=== PATIENT | male | born 1970 | race Caucasian/White ===

== ENCOUNTER 2018-09-30 09:56 | Inpatient (IN) | payer BC, OTHER ==
[~2018-09-30] VITALS: Ht 177.8 cm; Wt 117.9 kg
[2018-09-30] VITALS (12 sets, daily range): BP systolic 92–121; BP diastolic 61–90
[~2018-09-30 09:56] MED LIST: HYDR-707 PO; LORA-703 PO
[2018-09-30 10:21] LABS: BASOPHILS % (AUTO) 0 % (0-10); EOSINOPHILS # (AUTO) 0.1 10^3/uL (0.0-0.3); EOSINOPHILS % (AUTO) 1 % (0-10); HEMATOCRIT 48 % (40-54); HEMOGLOBIN 15.8 G/DL (13.3-17.7); LYMPHOCYTES # (AUTO) 1.5 X 10^3 (1.0-4.0); LYMPHOCYTES % (AUTO) 19 % (12-44); MEAN CORPUSCULAR HEMOGLOBIN 30 PG (25-34); MEAN CORPUSCULAR HGB CONC 33 G/DL (32-36); MEAN CORPUSCULAR VOLUME 91 FL (80-99); MEAN PLATELET VOLUME 11.6 FL (7.4-10.4); MONOCYTES # (AUTO) 0.6 X 10^3 (0.0-1.0); MONOCYTES % (AUTO) 8 % (0-12); NEUTROPHILS # (AUTO) 5.9 X 10^3 (1.8-7.8); NEUTROPHILS % (AUTO) 72 % (42-75); PLATELET COUNT 191 10^3/uL (130-400); RED BLOOD COUNT 5.23 10^6/uL (4.35-5.85); RED CELL DISTRIBUTION WIDTH 14.4 % (10.0-14.5); WHITE BLOOD COUNT 8.2 10^3/uL (4.3-11.0)
[2018-09-30] MEDS ORDERED: TPR25T PO (10:22)
[2018-09-30] MEDS ORDERED: PHEN-483 PO (10:22)
[2018-09-30] MEDS: DILTIAZEM INJECTION 125 MG in NS (IVPB) 100 ML IV SCH ×2 (10:30→22:45)
[2018-09-30 10:34] LABS: ALANINE AMINOTRANSFERASE 29 U/L (0-55); ALBUMIN 4.2 GM/DL (3.2-4.5); ALKALINE PHOSPHATASE 71 U/L (40-136); BILIRUBIN,TOTAL 0.6 MG/DL (0.1-1.0); BUN/CREATININE RATIO 11; CALCIUM 8.9 MG/DL (8.5-10.1); CARBON DIOXIDE 19 MMOL/L (21-32); CHLORIDE 113 MMOL/L (98-107); CREATININE SERUM 0.93 MG/DL (0.60-1.30); GFR ESTIMATED > 60; GLUCOSE 99 MG/DL (70-105); MAGNESIUM 2.5 MG/DL (1.8-2.4); POTASSIUM 4.6 MMOL/L (3.6-5.0); SODIUM 139 MMOL/L (135-145); TOTAL PROTEIN 6.8 GM/DL (6.4-8.2)
--- NOTE | 2018-09-30 10:48 | Diagnostic Imaging Report ---
INDICATION: Irregular heart beat COMPARISON: None FINDINGS: Single view of the chest demonstrates mild cardiac enlargement. The lungs are clear. There is no pneumothorax. The osseous structures normal. IMPRESSION: Mild cardiac enlargement without pulmonary edema or infiltrate. Dictated by: Dictated on workstation # [id number]
[2018-09-30 10:53] LABS: TSH (THYROID ANALYZER) 1.29 UIU/ML (0.35-4.94)
--- NOTE | 2018-09-30 11:51 | ED Cardiac General ---
History of Present Illness General Chief Complaint: Chest Pain Stated Complaint: IRR HEART RATE Nursing Triage Note: PT AMBULATED TO TRIAGE CO OF ATRIAL FIB, PT WAS SENT FROM [facility] THIS AM. PT DENIES C/P STATES HAS BEEN IN A-FIB FOR ABOUT 1 WEEK. PT STATES HAS HX OF A-FIB 2 YEARS AGO AND WAS SHOCKED BACK INTO [facility] NO PROB SINCE Source: patient, old records Exam Limitations: no limitations History of Present Illness Date Seen by Provider: Sep 30, 2018 Time Seen by Provider: 09:59 Initial Comments This 48-year-old gentleman presents to the emergency room with complaints of atrial fibrillation. He noted irregular rhythm and lightheadedness about one week ago. He had one remote episode of A. fib requiring cardioversion. He is no longer anticoagulated and is not on any medications to control rhythm. His primary care provider is the [place] in [place]. He has not seen any other local providers within the past 2 years. 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 He denies any medications other than phentermine and Topamax which he takes for treatment of obesity. He denies any chest pain or shortness of breath. Allergies and Home Medications Allergies Coded Allergies: No Known Drug Allergies (Unverified , 07/05/12) Home Medications Phentermine HCl 37.5 Mg Capsule, 37.5 MG PO DAILY, (Reported) Patient Home Medication List Home Medication List Reviewed: Yes Review of Systems Review of Systems Constitutional: no symptoms reported EENTM: No Symptoms Reported Respiratory: No Symptoms Reported Cardiovascular: See HPI Gastrointestinal: No Symptoms Reported Genitourinary: No Symptoms Reported Musculoskeletal: no symptoms reported Skin: no symptoms reported Psychiatric/Neurological: No Symptoms Reported Endocrine: No Symptoms Reported Hematologic/Lymphatic: No Symptoms Reported Past Bitsggq-Dnclvj-Myhvkg Hx Patient Social History Recent Foreign Travel: No Contact w/Someone Who Travel: No Recent Infectious Disease Expo: No Past Medical History Surgeries: Yes Orthopedic (Right arm) Respiratory: No Cardiac: Yes Atrial Fibrillation Neurological: No Reproductive Disorders: No Genitourinary: Yes Kidney Stones Gastrointestinal: No Musculoskeletal: No Endocrine: Yes (Obesity) HEENT: No Cancer: No Psychosocial: No Integumentary: No Physical Exam Vital Signs Vital Signs - First Documented 09/30/18 10:00 Temp 98.1 Pulse 128 Resp 18 B/P (MAP) 126/80 (95) Pulse Ox 99 O2 Delivery Room Air Capillary Refill : Less Than 3 Seconds Height, Weight, BMI Height: 5'10.00" Weight: 265lbs. oz. 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 Norm as Tested Skin: Normal Color, Warm/Dry Progress/Results/Core Measures Results/Orders Lab Results Laboratory Tests Test 09/30/18 10:05 Range/Units White Blood Count 8.2 4.3-11.0 10^3/uL Red Blood Count 5.23 4.35-5.85 10^6/uL Hemoglobin 15.8 13.3-17.7 G/DL Hematocrit 48 40-54 % Mean Corpuscular Volume 91 80-99 FL Mean Corpuscular Hemoglobin 30 25-34 PG Mean Corpuscular Hemoglobin Concent 33 32-36 G/DL Red Cell Distribution Width 14.4 10.0-14.5 % Platelet Count 191 130-400 10^3/uL Mean Platelet Volume 11.6 H 7.4-10.4 FL Neutrophils (%) (Auto) 72 42-75 % Lymphocytes (%) (Auto) 19 12-44 % Monocytes (%) (Auto) 8 0-12 % Eosinophils (%) (Auto) 1 0-10 % Basophils (%) (Auto) 0 0-10 % Neutrophils # (Auto) 5.9 1.8-7.8 X 10^3 Lymphocytes # (Auto) 1.5 1.0-4.0 X 10^3 Monocytes # (Auto) 0.6 0.0-1.0 X 10^3 Eosinophils # (Auto) 0.1 0.0-0.3 10^3/uL Basophils # (Auto) 0.0 0.0-0.1 10^3/uL Sodium Level 139 135-145 MMOL/L Potassium Level 4.6 3.6-5.0 MMOL/L Chloride Level 113 H 98-107 MMOL/L Carbon Dioxide Level 19 L 21-32 MMOL/L Anion Gap 7 5-14 MMOL/L Blood Urea Nitrogen 10 7-18 MG/DL Creatinine 0.93 0.60-1.30 MG/DL Estimat Glomerular Filtration Rate > 60 BUN/Creatinine Ratio 11 Glucose Level 99 70-105 MG/DL Calcium Level 8.9 8.5-10.1 MG/DL Corrected Calcium 8.7 8.5-10.1 MG/DL Magnesium Level 2.5 H 1.8-2.4 MG/DL Total Bilirubin 0.6 0.1-1.0 MG/DL Aspartate Amino Transf (AST/SGOT) 22 5-34 U/L Alanine Aminotransferase (ALT/SGPT) 29 0-55 U/L Alkaline Phosphatase 71 40-136 U/L Troponin I < 0.30 <0.30 NG/ML Total Protein 6.8 6.4-8.2 GM/DL Albumin 4.2 3.2-4.5 GM/DL TSH [place] Testing 1.29 0.35-4.94 UIU/ML My Orders Orders - NICHO ESCOBAR MD Cbc With Automated Diff (09/30/18 10:07) Comprehensive Metabolic Panel (09/30/18 10:07) Magnesium (09/30/18 10:07) Thyroid Analyzer (09/30/18 10:07) Troponin I (09/30/18 10:07) Chest 1 View, Ap/Pa Only (09/30/18 10:07) Saline Lock/Iv-Start (09/30/18 10:07) Ns (Ivpb) (Sodium C... W/Diltiazem Injec (09/30/18 10:15) Apixaban Tablet (Eliquis Tablet) (09/30/18 13:45) Medications Given in ED Current Medications Medications Dose Ordered Sig/Abilio Route Start Time Stop Time Status Last Admin Dose Admin Apixaban 5 mg ONCE ONCE PO 09/30/18 13:45 09/30/18 13:46 DC 09/30/18 13:50 5 MG Vital Signs/I&O 09/30/18 09/30/18 10:00 10:00 Temp 98.1 Pulse 128 Resp 18 B/P (MAP) 126/80 (95) Pulse Ox 99 O2 Delivery Room Air Blood Pressure Mean: 95 Progress Progress Note : Progress Note Patient's heart rate started in the 120s and 130s. Cardizem drip was initiated and brought his heart rate down into the 60s and 70s. Workup was grossly unremarkable. Case was discussed with Dr. Earl who preferred that the patient be admitted and observed overnight. Cardizem drip was continued. Eliquis was given for stroke prophylaxis. Initial ECG Impression Date: Sep 30, 2018 Initial ECG Impression Time: 10:00 Initial ECG Rate: 130 Initial ECG Rhythm: A Fib/Flutter Initial ECG Impression: Atrial Fibrillation w/RVR Comment Atrial fibrillation with RVR with no overt ST elevation or depression. Diagnostic Imaging Diagonstic Imaging: Xray Plain Films/CT/US/NM/MRI: chest Comments NAME: REENA FORD [facility] REC#: [id number] PT STATUS: REG ER : 1970 PHYSICIAN: NICHO ESCOBAR MD ADMIT DATE: 09/30/18/ER Draft Date of Exam:09/30/18 CHEST 1 VIEW, AP/PA ONLY INDICATION: Irregular heart beat COMPARISON: None FINDINGS: Single view of the chest demonstrates mild cardiac enlargement. The lungs are clear. There is no pneumothorax. The osseous structures normal. IMPRESSION: Mild cardiac enlargement without pulmonary edema or infiltrate. Dictated on workstation # [id number] Dict: 09/30/18 1042 Trans: 09/30/18 1047 AUGUSTIN [id number] Interpreted by: LILIANA PAREDES Departure Communication (Admissions) Time/Spoke to Admitting Phy: 13:30 Dr. Laguna Time/Spoke to Consulting Phy: 13:10 Dr. Earl Impression Primary Impression: Atrial fibrillation with RVR Disposition: 09 ADMITTED INPATIENT Condition: Improved Admissions Decision to Admit Reason: Admit from ER (General) Decision to Admit/Date: Sep 30, 2018 Time/Decision to Admit Time: 13:10 NICHO ESCOBAR MD Sep 30, 2018 11:51
[2018-09-30] MEDS ORDERED: APIXABAN 5 MG (ELIQUIS) TABLET PO ONE (13:45)
--- OUTSIDE RECORDS SUMMARY | 2018-09-30 13:52 | XMS REPORT | Continuity of Care Document ---
Demographics Preferred Language Unknown Marital Status Unknown Mormon Affiliation Unknown Race Unknown Ethnic Group Unknown Author Author [facility] Address Unknown Phone Unavailable Allergies There is no data. Medications There is no data. Problems Date Dx Coded Attending Type Code Diagnosis Diagnosed By 09/02/2012 278.00 OBESITY 09/02/[address] Abdominal Liver Mass Lesion ___cm 09/02/2012 592.0 NEPHROLITHIASIS BILATERAL 09/02/2012 796.2 Blood Pressure Isolated Elevated Procedures Code [place] [address] ROUTINE VENIPUNCTURE 09/02/2012 74822 A1C (IN-HOUSE) 09/02/2012 50135 CBC 09/02/2012 29972 LIPID PANEL 09/02/2012 44357 CMP 09/02/2012 [id number] GFR CALC (RESULT ONLY) 09/02/2012 98324 HEPATITIS PROFILE 09/03/2012 22324 UA W/MICROSCOPY 09/03/2012 89033 ALPHA-FETOPROTEIN 09/03/2012 95351 US ABDOMEN, LIMITED 09/03/2012 Results There is no data. Encounters ACCT No. Visit Date/Time Discharge Status Pt. Type Provider Facility Loc./Unit Complaint [id number] 09/02/2012 08:52:00 09/02/2012 23:59:59 CLS Outpatient
--- OUTSIDE RECORDS SUMMARY | 2018-09-30 15:08 | XMS REPORT | Continuity of Care Document ---
Demographics Preferred Language Unknown Marital Status Unknown Quaker Affiliation Unknown Race Unknown Ethnic Group Unknown Author Author [facility] Address Unknown Phone Unavailable Allergies There is no data. Medications There is no data. Problems Date Dx Coded Attending Type Code Diagnosis Diagnosed By 09/02/2012 278.00 OBESITY 09/02/[address] Abdominal Liver Mass Lesion ___cm 09/02/2012 592.0 NEPHROLITHIASIS BILATERAL 09/02/2012 796.2 Blood Pressure Isolated Elevated Procedures Code Description [place] [address] ROUTINE VENIPUNCTURE 09/02/2012 63461 A1C (IN-HOUSE) 09/02/2012 47578 CBC 09/02/2012 43174 LIPID PANEL 09/02/2012 92511 CMP 09/02/2012 [id number] GFR CALC (RESULT ONLY) 09/02/2012 66617 HEPATITIS PROFILE 09/03/2012 71377 UA W/MICROSCOPY 09/03/2012 50893 ALPHA-FETOPROTEIN 09/03/2012 71854 US ABDOMEN, LIMITED 09/03/2012 Results There is no data. Encounters ACCT No. Visit Date/Time Discharge Status Pt. Type Provider Facility Loc./Unit Complaint [id number] 09/02/2012 08:52:00 09/02/2012 23:59:59 CLS Outpatient
[2018-09-30] MEDS ORDERED: NS IV 1000 ML 1,000 ML ONE (15:15)
--- NOTE | 2018-09-30 15:25 | Consultation-Cardiology ---
HPI-Cardiology Cardiology Consultation Date of Consultation 09/30/18 Date of Admission Time Seen by Provider: 15:21 Indication: atrial fibrillation HPI 48 years old gentleman with history of atrial fibrillation in the remote past. Was in his usual state of health, seen at the [facility] and reported that he was in atrial fibrillation. He was monitored and continued to be in atrial fibrillation for about a week and he was offered to be admitted to the [facility] or come to the emergency room in [place], he elected to come to our hospital. His been complaining of generalized fatigue, shortness of breath on exertion. Orthostatic dizziness. No chest pain. No syncope or near syncopal episodes. No palpitation. He was noted to be in atrial fibrillation with rapid ventricular response, started on Cardizem drip, heart rate is slightly better. Denied any previous cardiac history, has been taking phentermine for weight loss Home Medications & Allergies Allergies: Coded Allergies: No Known Drug Allergies (Unverified , 07/05/12) Home Medication List Reviewed: Yes OEC-Frkmkq-Zzkymw Hx Patient Social History Marital Status: Employed/Student: employed Recent Foreign Travel: No Recent Infectious Disease Expo: No Past Medical History History of atrial fibrillation Family Medical History Family Medical Hx Noncontributory to his current condition Review of Systems Constitutional: see HPI, dizziness, weakness EENTM: see HPI, no symptoms reported Respiratory: see HPI; No cough; dyspnea on exertion; No hemoptysis, No orthopnea, No phlegm, No short of breath, No stridor, No wheezing, No other Cardiovascular: see HPI; No chest pain, No edema, No Hx of Intervention, No palpitations, No syncope, No vascular heart diseas, No other Gastrointestinal: no symptoms reported, see HPI Genitourinary: no symptoms reported, see HPI Musculoskeletal: no symptoms reported, see HPI Skin: see HPI Psychiatric/Neurological: No Symptoms Reported, See HPI Reviewed Test Results Reviewed Test Results Lab Laboratory Tests Test 09/30/18 10:05 Range/Units White Blood Count 8.2 4.3-11.0 10^3/uL Red Blood Count 5.23 4.35-5.85 10^6/uL Hemoglobin 15.8 13.3-17.7 G/DL Hematocrit 48 40-54 % Mean Corpuscular Volume 91 80-99 FL Mean Corpuscular Hemoglobin 30 25-34 PG Mean Corpuscular Hemoglobin Concent 33 32-36 G/DL Red Cell Distribution Width 14.4 10.0-14.5 % Platelet Count 191 130-400 10^3/uL Mean Platelet Volume 11.6 H 7.4-10.4 FL Neutrophils (%) (Auto) 72 42-75 % Lymphocytes (%) (Auto) 19 12-44 % Monocytes (%) (Auto) 8 0-12 % Eosinophils (%) (Auto) 1 0-10 % Basophils (%) (Auto) 0 0-10 % Neutrophils # (Auto) 5.9 1.8-7.8 X 10^3 Lymphocytes # (Auto) 1.5 1.0-4.0 X 10^3 Monocytes # (Auto) 0.6 0.0-1.0 X 10^3 Eosinophils # (Auto) 0.1 0.0-0.3 10^3/uL Basophils # (Auto) 0.0 0.0-0.1 10^3/uL Sodium Level 139 135-145 MMOL/L Potassium Level 4.6 3.6-5.0 MMOL/L Chloride Level 113 H 98-107 MMOL/L Carbon Dioxide Level 19 L 21-32 MMOL/L Anion Gap 7 5-14 MMOL/L Blood Urea Nitrogen 10 7-18 MG/DL Creatinine 0.93 0.60-1.30 MG/DL Estimat Glomerular Filtration Rate > 60 BUN/Creatinine Ratio 11 Glucose Level 99 70-105 MG/DL Calcium Level 8.9 8.5-10.1 MG/DL Corrected Calcium 8.7 8.5-10.1 MG/DL Magnesium Level 2.5 H 1.8-2.4 MG/DL Total Bilirubin 0.6 0.1-1.0 MG/DL Aspartate Amino Transf (AST/SGOT) 22 5-34 U/L Alanine Aminotransferase (ALT/SGPT) 29 0-55 U/L Alkaline Phosphatase 71 40-136 U/L Troponin I < 0.30 <0.30 NG/ML Total Protein 6.8 6.4-8.2 GM/DL Albumin 4.2 3.2-4.5 GM/DL TSH [place] Testing 1.29 0.35-4.94 UIU/ML Physical Exam Vital Signs Vital Signs - First Documented 09/30/18 10:00 Temp 98.1 Pulse 128 Resp 18 B/P (MAP) 126/80 (95) Pulse Ox 99 O2 Delivery Room Air Capillary Refill : Less Than 3 Seconds Height, Weight, BMI Height: 5'10.00" Weight: 265lbs. oz. 120.585881yj; BMI Method:Stated General Appearance: No Apparent Distress, WD/WN Eyes: Bilateral Eye Normal Inspection, Bilateral Eye PERRL, Bilateral Eye EOMI HEENT: PERRL/EOMI, TMs Normal, Normal ENT Inspection, Pharynx Normal Neck: Full Range of Motion, Normal Inspection, Non Tender, Supple, Carotid Bruit Respiratory: Chest Non Tender, Lungs Clear, Normal Breath Sounds, No Accessory Muscle Use, No Respiratory Distress Cardiovascular: No Edema, No Gallop, No JVD, No Murmur, Normal Peripheral Pulses, Irregularly Irregular Gastrointestinal: Normal Bowel Sounds, No Organomegaly, No Pulsatile Mass, Non Tender, Soft Back: Normal Inspection, No CVA Tenderness, No Vertebral Tenderness Extremity: Normal Capillary Refill, Normal Inspection, Normal Range of Motion, Non Tender, No Calf Tenderness, No Pedal Edema Neurologic/Psychiatric: Alert, Oriented x3, No Motor/Sensory Deficits, Normal Mood/Affect Skin: Normal Color, Warm/Dry Lymphatic: No Adenopathy A/P-Cardiology Admission Diagnosis Paroxysmal atrial fibrillation Hypotension Dizziness Obesity Assessment/Plan Paroxysmal atrial fibrillation, currently in atrial fibrillation with rapid ventricular response, had an episode of atrial fibrillation a few years ago. Etiology is unknown, it could be secondary to phentermine or sleep apnea. Patient was started on Cardizem drip, I'll monitor him overnight, started on Eliquis, planning to evaluate JOSEPH with cardioversion in the morning if he did not convert on his own. TSH was normal, rest of his workup was normal. Borderline hypotension, secondary to Cardizem, will give IV fluid and monitor next Mild congestive heart failure, could be secondary to the atrial fibrillation with rapid ventricular response. Left ventricular systolic dysfunction, continue to monitor at this time, we'll initiate low-dose beta blockers and tolerating it Questionable hyperlipidemia I will evaluate lipid profile Obesity, started on phentermine as an outpatient, educated on avoiding phentermine and weight loss and exercise High risk for sleep apnea, patient will need to have sleep study done. Orthostatic dizziness and fatigue with loss of energy, it could be secondary to atrial fibrillation. Continue to monitor BRYSON STATON MD Sep 30, 2018 15:25
[2018-09-30] MEDS ORDERED: TOPI50TA13 PO (16:30)
[2018-09-30] MEDS ORDERED: FLU QUADRIvalent (5+ YOA) 2018-2019 (AFLURIA) 0.5 ML IM ONE (16:45)
[2018-09-30] MEDS: APIXABAN 5 MG (ELIQUIS) TABLET PO SCH (20:50)
[2018-10-01] VITALS (18 sets, daily range): BP systolic 87–123; BP diastolic 63–96
[2018-10-01] MEDS ORDERED: NS (IVPB) 100 ML ONE
[2018-10-01 03:40] LABS: HEMOGLOBIN 15.1 G/DL (13.3-17.7); MEAN PLATELET VOLUME 11.5 FL (7.4-10.4); RED BLOOD COUNT 4.98 10^6/uL (4.35-5.85); RED CELL DISTRIBUTION WIDTH 14.6 % (10.0-14.5); WHITE BLOOD COUNT 7.8 10^3/uL (4.3-11.0)
[2018-10-01 04:25] LABS: ALANINE AMINOTRANSFERASE 24 U/L (0-55); ALBUMIN 3.7 GM/DL (3.2-4.5); ALKALINE PHOSPHATASE 66 U/L (40-136); BILIRUBIN,TOTAL 0.4 MG/DL (0.1-1.0); BUN/CREATININE RATIO 13; CALCIUM 8.8 MG/DL (8.5-10.1); CARBON DIOXIDE 17 MMOL/L (21-32); CHLORIDE 113 MMOL/L (98-107); CHOLESTEROL 119 MG/DL (< 200); CREATININE SERUM 0.99 MG/DL (0.60-1.30); GFR ESTIMATED > 60; GLUCOSE 107 MG/DL (70-105); HDL CHOLESTEROL 37 MG/DL (40-60); MAGNESIUM 2.3 MG/DL (1.8-2.4); POTASSIUM 4.1 MMOL/L (3.6-5.0); SODIUM 139 MMOL/L (135-145); TOTAL PROTEIN 6.1 GM/DL (6.4-8.2); TRIGLYCERIDES 98 MG/DL (<150); VLDL CHOLESTEROL 20 MG/DL (5-40)
[2018-10-01] MEDS: DILTIAZEM INJECTION 125 MG in NS (IVPB) 100 ML IV SCH (05:59)
[2018-10-01] MEDS ORDERED: KCL 20 MEQ TAB (K-DUR) PO SCH (06:00)
[2018-10-01] MEDS ORDERED: POTASSIUM CL 10MEQ/50ML IVPB 50 ML IV SCH (06:00)
[2018-10-01] MEDS ORDERED: MAGNESIUM 1 GM/100 ML IVPB 100 ML IV SCH (06:00)
--- NOTE | 2018-10-01 07:06 | Cardiac Procedure Note-CS/ASA ---
Pre-Procedure Note Pre-Op Procedure Note H&P Reviewed The H&P was reviewed, patient examined and no changes noted. Date H&P Reviewed: Oct 01, 2018 Time H&P Reviewed: 07:06 Conscious Sedation Pre-Proced Time 07:06 ASA Score 3 For ASA 3 and 4: Consider anesthesia and medical clearance. Also, for patients with a history of failed moderate sedation consider anesthesia. Airway Lungs Heart ASA score ASA 1: a normal healthy patient ASA 2: a patient with a mild systemic disease (mid diabetes, controlled hypertension, obesity x ASA 3: a patient with a severe systemic disease that limits activity (angina , COPD, prior Myocardial infarction) ASA 4: a patient with an incapacitating disease that is a constant threat to life (CHF, renal failure) ASA 5: a moribund patient not expected to survive 24 hrs. (ruptured aneurysm) ASA 6: a declared brain patient whose organs are being harvested. For emergent operations, add the letter E after the classification Mallampati Classification Grade 3 Sedation Plan Analgesia, Amnesia, Plan communicated to team members, Discussed options with patient/fam, Discussed risks with patient/fam The patient is an appropriate candidate to undergo the planned procedure, sedation, and anesthesia. The patient immediately re-assessed prior to indication. BRYSON STATON MD Oct 01, 2018 07:06
--- NOTE | 2018-10-01 07:06 | Cardiology Progress Note ---
Subjective Date Seen by Provider: Oct 01, 2018 Time Seen by Provider: 07:03 Subjective/Events-last exam patient is laying down in bed, still in atrial fibrillation. Denied any chest pain. No palpitation. Review of Systems General: No Chills, No Night Sweats; Fatigue; No Malaise, No Appetite, No Other HEENT: No Head Aches, No Visual Changes, No Eye Pain, No Ear Pain, No Dysphasia , No Sinus Congestion, No Post Nasal Drip, No Sore Throat, No Other Pulmonary: Dyspnea; No Cough, No Pleuritic Chest Pain, No Other Cardiovascular: No: Chest Pain, Palpitations, Orthopnea, Paroxysmal Noc. Dyspnea, Edema, Lt Headedness, Other Objective-Cardiology Exam Last Set of Vital Signs Vital Signs 09/30/18 10/01/18 23:15 06:00 Temp 98.1 Pulse 71 Resp 22 B/P (MAP) 94/73 (80) Pulse Ox 93 O2 Delivery Room Air Capillary Refill : Less Than 3 Seconds I&O Intake and Output 10/01/18 00:00 Intake Total 1525 ml Output Total 950 ml Balance 575 ml Intake Oral 525 ml IV Total 1000 ml Output Urine Total 950 ml Daily Weight Change Yes, Greater than 33 lbs General: Alert, Oriented X3, Cooperative HEENT: Atraumatic, PERRLA Neck: Supple, No JVD, No Thyromegaly Lungs: Clear to Auscultation, Normal Air Movement Heart: Normal S1, Normal S2, No Murmurs, Other (atrial fibrillation) Abdomen: Normal Bowel Sounds, Soft, No Tenderness, No Hepatosplenomegaly, No Masses Extremities: No Clubbing, No Cyanosis, No Edema, Normal Pulses, No Tenderness/ Swelling Skin: No Rashes, No Breakdown, No Significant Lesion Neuro: Normal Gait, Normal Speech, Strength at 5/5 X4 Ext, Normal Tone, Sensation Intact Psych/Mental Status: Mental Status NL, Mood NL Results Lab Laboratory Tests 09/30/18 10:05 10/01/18 03:30 A/P-Cardiology Admission Diagnosis Paroxysmal atrial fibrillation Hypotension Dizziness Obesity Assessment/Plan Paroxysmal atrial fibrillation, had an episode of atrial fibrillation 2 years ago, currently still in atrial fibrillation, rate is controlled on Cardizem, planning to proceed with JOSEPH and possible cardioversion Congestive heart failure, acute left ventricular systolic dysfunction, ejection fraction 35-40 percent, probably secondary to tachycardia. We will start beta blockers and HORTENCIA inhibitor, will need a stress test as an outpatient. Generalized fatigue and loss of energy, probably secondary to atrial fibrillation and congestive heart failure. Lipid profile showed total cholesterol 117, LDL 71. Continue to monitor Obesity, started on phentermine as an outpatient, educated on avoiding phentermine and weight loss and exercise High risk for sleep apnea, patient will need to have sleep study done, consult Dr. Vidal Orthostatic dizziness and fatigue with loss of energy, it could be secondary to atrial fibrillation. Continue to monitor Clinical Quality Measures DVT/VTE Risk/Contraindication: Risk Factor Score Per Nursin RFS Level Per Nursing on Admit: 2=Moderate BRYSON STATON MD Oct 01, 2018 07:05
[2018-10-01] MEDS ORDERED: LIDOCAINE 2% VISCOUS 15 ML UDC ONE (08:03)
[2018-10-01] MEDS ORDERED: NS IV 1000 ML 1,000 ML ONE (08:07)
[2018-10-01] MEDS ORDERED: proPOfol 200 MG/20 ML (DIPRIVAN) VIAL IV ONE (08:22)
[2018-10-01] MEDS ORDERED: MIDAZOLAM 2 MG/2 ML (VERSED) VIAL ONE (08:22)
[2018-10-01] MEDS ORDERED: meTOprolol TARTRATE 50 MG (LOPRESSOR) TAB PO NR (08:45)
[2018-10-01] MEDS ORDERED: ENALAPRIL 5 MG (VASOTEC) TAB PO SCH (09:00)
--- NOTE | 2018-10-01 09:06 | Short Stay Summary-Hospitalist ---
History of Present Illness HPI/Chief Complaint CC: AF w/RVR HPI: This is a 48-year-old white male who presented for refill of phentermine at [facility] in [place] who was found to have an atrial fibrillation with rapid ventricular response and transferred to [facility] for cardiology care. He does have a history of atrial fibrillation 2 years ago after undergoing orthopedic surgery but none since that time. They were able to cardiovert him last time and that did occur today but patient remains in atrial fibrillation. Patient denies any chest pain or shortness of breath currently. He has lost 40 pounds since taking the phentermine. at the bedside tells me that he has overall been very healthy and has never been tested for sleep apnea which it appears that the patient is at risk for. Source: patient, family Exam Limitations: no limitations Date Seen 10/01/18 Time Seen by a Provider: 10:00 Attending Physician Jenna Laguna DO PCP No,Local Physician Referring Physician Date of Admission Sep 30, 2018 at 13:45 Home Medications & Allergies Home Medications Reviewed patient Home Medication Reconciliation performed by pharmacy medication reconciliations landscape technician and/or nursing. Patients Allergies have been reviewed. Allergies Allergies Coded Allergies Penicillins (Verified Allergy, Unknown, 10/01/18) Past Yhccphj-Ngfixv-Hvhjno Hx Past Med/Social Hx: Reviewed Nursing Past Med/Soc Hx, Reviewed and Corrections made Patient Social History Marrital Status: Employed/Student: employed (works at [employer] in [employer] and lives in [place]) Alcohol Use: Rarely Uses Number of Drinks Today: 0 Alcohol Beverage of Choice: Beer Recreational Drug Use: No Smoking Status: Never a Smoker Physical Abuse Screen: No Sexual Abuse: No Recent Foreign Travel: No Contact w/other who traveled: No Recent Hopitalizations: No Recent Infectious Disease Expo: No Seasonal Allergies Seasonal Allergies: No Past Medical History Surgeries: Orthopedic (Right arm) Currently Using CPAP: No Currently Using BIPAP: No Cardiac: Atrial Fibrillation Reproductive: No Genitourinary: Kidney Stones History of Blood Disorders: No Review of Systems Constitutional: see HPI, weakness EENTM: no symptoms reported Respiratory: no symptoms reported Cardiovascular: palpitations Gastrointestinal: no symptoms reported Genitourinary: no symptoms reported Musculoskeletal: no symptoms reported Skin: no symptoms reported Psychiatric/Neurological: No Symptoms Reported All Other Systems Reviewed Negative Unless Noted: Yes Physical Exam Physical Exam Vital Signs Vital Signs - First Documented 09/30/18 10:00 Temp 98.1 Pulse 128 Resp 18 B/P (MAP) 126/80 (95) Pulse Ox 99 O2 Delivery Room Air Capillary Refill : Less Than 3 Seconds Height, Weight, BMI Height: 5'10.00" Weight: 260lbs. 0.0oz. 117.464647bc; 38.0 BMI Method:Stated General Appearance: No Apparent Distress, WD/WN Eyes: Bilateral Eye Normal Inspection, Bilateral Eye PERRL HEENT: PERRL/EOMI, Normal ENT Inspection, Pharynx Normal Neck: Full Range of Motion, Normal Inspection, Non Tender, Supple, Carotid Bruit Respiratory: Chest Non Tender, Lungs Clear, Normal Breath Sounds, No Accessory Muscle Use, No Respiratory Distress Cardiovascular: No Edema, No Gallop, No JVD, No Murmur, Normal Peripheral Pulses, Irregularly Irregular Gastrointestinal: Normal Bowel Sounds, No Organomegaly, No Pulsatile Mass, Non Tender, Soft Back: Normal Inspection, No CVA Tenderness, No Vertebral Tenderness Extremity: Normal Capillary Refill, Normal Inspection, Normal Range of Motion, Non Tender, No Calf Tenderness, No Pedal Edema Neurologic/Psychiatric: Alert, Oriented x3, No Motor/Sensory Deficits, Normal Mood/Affect Skin: Normal Color, Warm/Dry Lymphatic: No Adenopathy Results Results/Procedures Labs Laboratory Tests 09/30/18 10:05 10/01/18 03:30 Patient resulted labs reviewed. Short Stay Diagnosis Discharge Diagnosis-Short Stay Admission Diagnosis Assessment: Atrial fibrillation with rapid ventricular response status post JOSEPH and cardioversion which was not successful Phentermine use Obesity improved on phentermine with loss of 40 pounds History of atrial fibrillation 2 years ago postoperatively from orthopedic surgery Appears to be at risk for obstructive sleep apnea Final Discharge Diagnosis Assessment: Atrial fibrillation with rapid ventricular response status post JOSEPH and cardioversion which was not successful Phentermine use Obesity improved on phentermine with loss of 40 pounds History of atrial fibrillation 2 years ago postoperatively from orthopedic surgery Appears to be at risk for obstructive sleep apnea Conclusion Plan Plan: Cardiology expertise appreciated Await plan from cardiology Diagnosis/Problems Diagnosis/Problems (1) Atrial fibrillation with RVR Status: Acute Clinical Quality Measures DVT/VTE Risk/Contraindication: Risk Factor Score Per Nursin RFS Level Per Nursing on Admit: 2=Moderate JENNA LAGUNA DO Oct 01, 2018 09:06
--- NOTE | 2018-10-01 09:13 | Diagnostic Imaging Report ---
INDICATION: Transesophageal echo. Time of exam: 8:58 AM Correlation is made with prior study from 09/30/2018. Heart size is stable. Lungs are clear. No pneumothorax is seen. The pulmonary vascularity is normal. There is no effusion. IMPRESSION: No acute cardiopulmonary process is detected. Dictated by: Dictated on workstation # [id number]
--- NOTE | 2018-10-01 09:56 | Anesthesia-Procedure Note ---
Procedures/Interventions Procedure Start/Stop/Diagnosis Date of Procedure: Oct 01, 2018 Start Time: 08:25 Referring Physician: Mady Preprocedural Diagnosis: A-fib Stop Time: 08:40 JOSEPH/Cardioversion Anesthesia Type: MAC ASA Class: 3 Medications Versed 2mg, Propofol 100mg Monitors and Equipment: BP Cuff - Right, Continuous EKG, End Tidal CO2, IV, Pulse Oximeter READING,KIRSTEN Yeager CRNA Oct 01, 2018 09:56
[2018-10-01] MEDS: APIXABAN 5 MG (ELIQUIS) TABLET PO SCH (10:19)
[2018-10-01] MEDS ORDERED: DILTIAZEM 60 MG (CARDIZEM) TAB PO SCH (10:30)
[2018-10-01] MEDS ORDERED: DILTIAZEM 240 MG (CARDIZEM CD) CAP PO SCH (16:15)
[2018-10-01] MEDS ORDERED: ENAL5TAB PO (16:47)
[2018-10-01] MEDS ORDERED: DILT240C97 PO (16:47)
[2018-10-01] MEDS ORDERED: APIX5TAB PO (16:47)
--- NOTE | 2018-10-02 14:51 | Physician Query-Heart Failure ---
Physician Query-Heart Failure Query to Physician: Provider's Document Request-Please contact secondary art teacher listed on document for more information. Dear Provider, We need your assistance to accurately capture the severity of the patients heart failure. Physician participation is requested in all cases of hcc coders uncertainty to minimize errors in code assignment and to avoid compliance issues. Please select the type of heart failure the patient has below. Clinical Findings: Ejection Fraction: <40 (HORTENCIA/ARB Indicated) Type of Heart Failure: Type of Heart Failure: Systolic HF (Acute) Status: Acute If you have questions please contact: Lining Scrubber: Ext: Thank you for your time and cooperation. Clinical Stitch Bonding Machine Tender Helper/Lining Scrubber This is a permanent part of the medical record OSWALDO DELGADILLO Oct 02, 2018 14:51 BRYSON STATON MD Oct 03, 2018 17:03
--- OUTSIDE RECORDS SUMMARY | 2018-10-05 13:58 | XMS REPORT | Continuity of Care Document ---
Demographics Preferred Language Unknown Marital Status Unknown Judaism Affiliation Unknown Race Unknown Ethnic Group Unknown Author Author [facility] Address Unknown Phone Unavailable Allergies There is no data. Medications There is no data. Problems Date Dx Coded Attending Type Code Diagnosis Diagnosed By 09/02/2012 278.00 OBESITY 09/02/[address] Abdominal Liver Mass Lesion ___cm 09/02/2012 592.0 NEPHROLITHIASIS BILATERAL 09/02/2012 796.2 Blood Pressure Isolated Elevated Procedures Code [place] [address] ROUTINE VENIPUNCTURE 09/02/2012 15291 A1C (IN-HOUSE) 09/02/2012 73181 CBC 09/02/2012 39980 LIPID PANEL 09/02/2012 93897 CMP 09/02/2012 1373357 GFR CALC (RESULT ONLY) 09/02/2012 65485 HEPATITIS PROFILE 09/03/2012 68364 UA W/MICROSCOPY 09/03/2012 38182 ALPHA-FETOPROTEIN 09/03/2012 67046 US ABDOMEN, LIMITED 09/03/2012 Results There is no data. Encounters ACCT No. Visit Date/Time Discharge Status Pt. Type Provider Facility Loc./Unit Complaint [id number] 09/02/2012 08:52:00 09/02/2012 23:59:59 CLS Outpatient
== END 2018-10-01 17:20 | disposition home or self-care (01) | DRG 308 ==
LOC: EDUNIT# 09:56 → ER 09:59 → UNDOADMOB 13:45 → ICU 13:45 → OBSVTOIN 13:45 → ICU 13:45 → INTOOBSV 13:45 → UNDODISIN 10-01 17:20 → UNDODISOB 10-01 17:20
PROVIDERS: ADMIT Internal Medicine; ATTEND Internal Medicine
DX: I48.0 Paroxysmal atrial fibrillation (principal); I50.21 Acute systolic (congestive) heart failure; E66.9 Obesity, unspecified; Z68.37 Body mass index [BMI] 37.0-37.9, adult; R53.83 Other fatigue; R42 Dizziness and giddiness; I95.9 Hypotension, unspecified; E78.5 Hyperlipidemia, unspecified; Z88.0 Allergy status to penicillin
CPT/HCPCS: 36415; 71045; 80053; 80061; 83735; 83880; 84443; 84484; 85025; 85027; 93005; 93306; 93312; 93320; 93325; 96365; 96366

== ENCOUNTER → 2018-11-11 | Outpatient (CLI) | payer OTHER ==
[~2018-11-11] VITALS: Ht 177.8 cm; Wt 119.3 kg
[~2018-11-11] MED LIST changes: +APIX5TAB PO; +CATHETER FLUSH 10 ML SYR IV PRN; +DILT240C97 PO; +ENAL5TAB PO; +PHEN-483 PO; +REGADENOSON 0.4 MG/5 ML SYR (LEXISCAN) IV ONE; +TOPI50TA13 PO; +TPR25T PO
[2018-11-11 09:40] VITALS: BP 130/92
[2018-11-11 09:41] VITALS: BP 114/90
--- NOTE | 2018-11-11 14:05 | STRESS TEST ---
DATE OF SERVICE: 11/11/2018 LEXISCAN MYOVIEW STRESS TEST REPORT Baseline heart rate is 114. Baseline blood pressure is 120/89. Baseline EKG is sinus rhythm with no ischemic changes. In summary, the patient was injected with 10.84 mCi of technetium-99 Myoview and the resting images were obtained. Then, the patient received 0.4 mg of Lexiscan followed by 29.6 mCi of technetium-99 Myoview. Throughout the test, there were no EKG changes. The resting and stress images were reviewed and compared in the short axis, horizontal long axis and vertical long axis views. Review of the images showed good radiotracer uptake with no significant ischemia or infarction. SSS is 1, SDS 1 and TID value 1.02. On the gated images, the left ventricle appeared to be normal size with normal contractility. Calculated ejection fraction is 64%, gated images are unreliable due to underlying atrial fibrillation. CONCLUSION: 1. The patient tolerated the Lexiscan well. 2. Baseline atrial fibrillation persisted throughout test. 3. No ischemia or infarction on SPECT images. 4. Normal left ventricular size with normal contractility. Calculated ejection fraction is 64%, gated images are unreliable due to underlying atrial fibrillation. Job ID: [id number] DocumentID: [id number] Dictated Date: 11/11/2018 13:54:16 Bee Rancher Date: 11/11/2018 14:04:33 Dictated By: BRYSON STATON MD
== END ==
LOC: CARD 07:57
PROVIDERS: ATTEND Internal Medicine Cardiovascular Disease
DX: I48.91 Unspecified atrial fibrillation (principal); I50.9 Heart failure, unspecified; R42 Dizziness and giddiness
CPT/HCPCS: 78452; 93017

== ENCOUNTER 2018-11-18 08:10 | Day surgery (SDC) | payer OTHER ==
[~2018-11-18] VITALS: Ht 177.8 cm; Wt 117.9 kg
[2018-11-18] VITALS (22 sets, daily range): BP systolic 98–124; BP diastolic 57–99
[~2018-11-18 08:10] MED LIST changes: -CATHETER FLUSH 10 ML SYR IV PRN; -REGADENOSON 0.4 MG/5 ML SYR (LEXISCAN) IV ONE
[2018-11-18] MEDS ORDERED: NS IV 1000 ML 1,000 ML ONE (08:32)
[2018-11-18] MEDS ORDERED: LIDOCAINE 2% VISCOUS 15 ML UDC ONE (08:32)
[2018-11-18] MEDS ORDERED: NS IV 1000 ML 1,000 ML IV ONE (08:37)
[2018-11-18] MEDS ORDERED: LIDOCAINE 2% VISCOUS 15 ML UDC PO ONE (08:45)
[2018-11-18] MEDS ORDERED: DABI150C5 PO (08:54)
--- NOTE | 2018-11-18 09:08 | Diagnostic Imaging Report ---
INDICATION: Pre-heart catheterization. TIME OF EXAM: 8:59 AM Comparison is made with prior exam from 10/01/2018. FINDINGS: The heart is enlarged. Lungs are clear. Vascularity is normal. No effusion or pneumothorax is seen. IMPRESSION: Mild cardiomegaly. No acute abnormality is detected. Dictated by: Dictated on workstation # [id number]
[2018-11-18 09:09] LABS: HEMOGLOBIN 15.8 G/DL (13.3-17.7); MEAN PLATELET VOLUME 11.3 FL (7.4-10.4); RED CELL DISTRIBUTION WIDTH 13.8 % (10.0-14.5); WHITE BLOOD COUNT 8.9 10^3/uL (4.3-11.0)
[2018-11-18 09:19] LABS: INR 1.3 (0.8-1.4); PROTHROMBIN TIME PATIENT 15.8 SEC (12.2-14.7)
[2018-11-18 09:29] LABS: ALANINE AMINOTRANSFERASE 27 U/L (0-55); ALBUMIN 4.3 GM/DL (3.2-4.5); ALKALINE PHOSPHATASE 81 U/L (40-136); BILIRUBIN,TOTAL 0.4 MG/DL (0.1-1.0); BUN/CREATININE RATIO 15; CALCIUM 9.6 MG/DL (8.5-10.1); CARBON DIOXIDE 20 MMOL/L (21-32); CHLORIDE 111 MMOL/L (98-107); CREATININE SERUM 1.04 MG/DL (0.60-1.30); GFR ESTIMATED > 60; GLUCOSE 101 MG/DL (70-105); POTASSIUM 4.3 MMOL/L (3.6-5.0); SODIUM 140 MMOL/L (135-145); TOTAL PROTEIN 7.1 GM/DL (6.4-8.2)
--- NOTE | 2018-11-18 10:31 | Cardiac Procedure Note-CS/ASA ---
Pre-Procedure Note Pre-Op Procedure Note H&P Reviewed The H&P was reviewed, patient examined and no changes noted. Date H&P Reviewed: Nov 18, 2018 Time H&P Reviewed: 10:30 Conscious Sedation Pre-Proced Time 10:30 ASA Score 3 For ASA 3 and 4: Consider anesthesia and medical clearance. Also, for patients with a history of failed moderate sedation consider anesthesia. Airway Lungs Heart ASA score ASA 1: a normal healthy patient ASA 2: a patient with a mild systemic disease (mid diabetes, controlled hypertension, obesity x ASA 3: a patient with a severe systemic disease that limits activity (angina , COPD, prior Myocardial infarction) ASA 4: a patient with an incapacitating disease that is a constant threat to life (CHF, renal failure) ASA 5: a moribund patient not expected to survive 24 hrs. (ruptured aneurysm) ASA 6: a declared brain- patient whose organs are being harvested. For emergent operations, add the letter E after the classification Mallampati Classification Grade 3 Sedation Plan Analgesia, Amnesia, Plan communicated to team members, Discussed options with patient/fam, Discussed risks with patient/fam The patient is an appropriate candidate to undergo the planned procedure, sedation, and anesthesia. The patient immediately re-assessed prior to indication. BRYSON STATON MD Nov 18, 2018 10:31
[2018-11-18] MEDS ORDERED: fentaNYL INJECTION 100 MCG/2 ML AMP ONE (10:41)
[2018-11-18] MEDS ORDERED: proPOfol 200 MG/20 ML (DIPRIVAN) VIAL IV ONE ×2 (10:41→12:57)
[2018-11-18] MEDS ORDERED: MIDAZOLAM 2 MG/2 ML (VERSED) VIAL ONE ×2 (10:43→12:58)
[2018-11-18] MEDS ORDERED: AMIODARONE (OMNICELL DRIP KIT) 150 MG/3 ML IV ONE (10:52)
[2018-11-18] MEDS ORDERED: ENOXAPARIN 100 MG/1 ML (LOVENOX) SYR SC ONE (11:00)
[2018-11-18] MEDS ORDERED: AMIODARONE FOR BOLUS 150 MG in D5W 100 ML IVPB 100 ML IV ONE (11:00)
--- NOTE | 2018-11-18 11:02 | Progress Note-Standard ---
Standard Progress Note Progress Notes/Assess & Plan Date Seen by a Provider: Nov 18, 2018 Time Seen by a Provider: 10:40 Progress/Assessment & Plan consult for sedation for maude cardioversion. asa3. start time 1040 end time 1058. 100mg propofol and 2mg versed given. tolerated procedure well. CELENA DUGAN CRNA Nov 18, 2018 11:02
[2018-11-18] MEDS: AMIODARONE INJECTION 450 MG in D5W IV SOLUTION (EXCEL) 250 ML IV SCH ×2 (11:24→18:23)
--- NOTE | 2018-11-18 11:29 | NUR ---
pt transfer to ICU per cart, bedside report to be given.
--- OUTSIDE RECORDS SUMMARY | 2018-11-18 11:37 | XMS REPORT | Continuity of Care Document ---
Demographics Preferred Language Unknown Marital Status Unknown Jewish Affiliation Unknown Race Unknown Ethnic Group Unknown Author Author [facility] Address Unknown Phone Unavailable Allergies Active Description Code Type Severity Reaction Onset Reported/Identified Relationship to Patient Clinical Status Yes No Known Drug Allergies [id number] Drug Allergy Unknown N/A 07/05/2012 Yes Penicillins [id number] Drug Allergy Unknown N/A 10/01/2018 Medications There is no data. Problems Date Dx Coded Attending Type Code Diagnosis Diagnosed By 09/02/2012 278.00 OBESITY 09/02/[address] Abdominal Liver Mass Lesion ___cm 09/02/2012 592.0 NEPHROLITHIASIS BILATERAL 09/02/2012 796.2 Blood Pressure Isolated Elevated 09/30/2018 MORAN DO, BETO Ot E66.9 OBESITY, UNSPECIFIED 09/30/2018 MORAN DO, BETO Ot E78.5 HYPERLIPIDEMIA, UNSPECIFIED 09/30/2018 MORAN DO, BETO Ot I48.0 PAROXYSMAL ATRIAL FIBRILLATION 09/30/2018 MORAN DO, BETO Ot I50.9 HEART FAILURE, UNSPECIFIED 09/30/2018 MORAN DO, BETO Ot I95.9 HYPOTENSION, UNSPECIFIED 09/30/2018 MORAN DO, BETO Ot R42 DIZZINESS AND GIDDINESS 09/30/2018 MORAN DO, BETO Ot R53.83 OTHER FATIGUE 09/30/2018 MORAN DO, BETO Ot Z68.37 BODY MASS INDEX (BMI) 37.0-37.9, ADULT 09/30/2018 MORAN DO, BETO Ot Z88.0 ALLERGY STATUS TO PENICILLIN 10/01/2018 MORAN DO, BETO Ot E66.9 OBESITY, UNSPECIFIED 10/01/2018 MORAN DO, BETO Ot E78.5 HYPERLIPIDEMIA, UNSPECIFIED 10/01/2018 MORAN DO, BETO Ot I48.0 PAROXYSMAL ATRIAL FIBRILLATION 10/01/2018 MORAN DO, BETO Ot I50.21 ACUTE SYSTOLIC (CONGESTIVE) HEART FAILUR 10/01/2018 MORAN DO, BETO Ot I50.9 HEART FAILURE, UNSPECIFIED 10/01/2018 MORAN DO, BETO Ot I95.9 HYPOTENSION, UNSPECIFIED 10/01/2018 CATRINA MORAN DOI Ot R42 DIZZINESS AND GIDDINESS 10/01/2018 CATRINA MORAN DOI Ot R53.83 OTHER FATIGUE 10/01/2018 CATRINA MORAN DOI Ot Z68.37 BODY MASS INDEX (BMI) 37.0-37.9, ADULT 10/01/2018 CATRINA MORAN DOI Ot Z88.0 ALLERGY STATUS TO PENICILLIN 11/12/2018 BRYSON STATON MD Ot I48.91 UNSPECIFIED ATRIAL FIBRILLATION 11/12/2018 BRYSON STATON MD Ot I50.9 HEART FAILURE, UNSPECIFIED 11/12/2018 BRYSON STATON MD Ot R42 DIZZINESS AND GIDDINESS 11/16/2018 BRYSON STATON MD Ot I48.91 UNSPECIFIED ATRIAL FIBRILLATION 11/16/2018 BRYSON STATON MD Ot I50.9 HEART FAILURE, UNSPECIFIED 11/16/2018 BRYSON STATON MD Ot R42 DIZZINESS AND GIDDINESS 11/18/2018 BRYSON STATON MD Ot I48.91 UNSPECIFIED ATRIAL FIBRILLATION 11/18/2018 BRYSON STATON MD Ot I50.9 HEART FAILURE, UNSPECIFIED 11/18/2018 BRYSON STATON MD Ot R42 DIZZINESS AND GIDDINESS Procedures Code Description [place] [address] ROUTINE VENIPUNCTURE 09/02/2012 30300 A1C (IN-HOUSE) 09/02/2012 29477 CBC 09/02/2012 56904 LIPID PANEL 09/02/2012 75612 CMP 09/02/2012 0991723 GFR CALC (RESULT ONLY) 09/02/2012 67650 HEPATITIS PROFILE 09/03/2012 37340 UA W/MICROSCOPY 09/03/2012 86242 ALPHA-FETOPROTEIN 09/03/2012 16032 US ABDOMEN, LIMITED 09/03/2012 Results Test Result Range Complete blood count (CBC) with automated white blood cell (WBC) differential - 09/30/18 10:05 Blood leukocytes automated count (number/volume) 8.2 10*3/uL 4.3-11.0 Blood erythrocytes automated count (number/volume) 5.23 10*6/uL 4.35-5.85 Venous blood hemoglobin measurement (mass/volume) 15.8 g/dL 13.3-17.7 Blood hematocrit (volume fraction) 48 % 40-54 Automated erythrocyte mean corpuscular volume 91 [foz_us] 80-99 Automated erythrocyte mean corpuscular hemoglobin (mass per erythrocyte) 30 pg 25-34 Automated erythrocyte mean corpuscular hemoglobin concentration measurement ( mass/volume) 33 g/dL 32-36 Automated erythrocyte distribution width ratio 14.4 % 10.0-14.5 Automated blood platelet count (count/volume) 191 10*3/uL 130-400 Automated blood platelet mean volume measurement 11.6 [foz_us] 7.4-10.4 Automated blood neutrophils/100 leukocytes 72 % 42-75 Automated blood lymphocytes/100 leukocytes 19 % 12-44 Blood monocytes/100 leukocytes 8 % 0-12 Automated blood eosinophils/100 leukocytes 1 % 0-10 Automated blood basophils/100 leukocytes 0 % 0-10 Blood neutrophils automated count (number/volume) 5.9 10*3 1.8-7.8 Blood lymphocytes automated count (number/volume) 1.5 10*3 1.0-4.0 Blood monocytes automated count (number/volume) 0.6 10*3 0.0-1.0 Automated eosinophil count 0.1 10*3/uL 0.0-0.3 Automated blood basophil count (count/volume) 0.0 10*3/uL 0.0-0.1 Comprehensive metabolic panel - 09/30/18 10:05 Serum or plasma sodium measurement (moles/volume) 139 mmol/L 135-145 Serum or plasma potassium measurement (moles/volume) 4.6 mmol/L 3.6-5.0 Serum or plasma chloride measurement (moles/volume) 113 mmol/L 98-107 Carbon dioxide 19 mmol/L 21-32 Serum or plasma anion gap determination (moles/volume) 7 mmol/L 5-14 Serum or plasma urea nitrogen measurement (mass/volume) 10 mg/dL 7-18 Serum or plasma creatinine measurement (mass/volume) 0.93 mg/dL 0.60-1.30 Serum or plasma urea nitrogen/creatinine mass ratio 11 NRG Serum or plasma creatinine measurement with calculation of estimated glomerular filtration rate > NRG Serum or plasma glucose measurement (mass/volume) 99 mg/dL 70-105 Serum or plasma calcium measurement (mass/volume) 8.9 mg/dL 8.5-10.1 Serum or plasma total bilirubin measurement (mass/volume) 0.6 mg/dL 0.1-1.0 Serum or plasma alkaline phosphatase measurement (enzymatic activity/volume) 71 U/L 40-136 Serum or plasma aspartate aminotransferase measurement (enzymatic activity/ volume) 22 U/L 5-34 Serum or plasma alanine aminotransferase measurement (enzymatic activity/volume ) 29 U/L 0-55 Serum or plasma protein measurement (mass/volume) 6.8 g/dL 6.4-8.2 Serum or plasma albumin measurement (mass/volume) 4.2 g/dL 3.2-4.5 CALCIUM CORRECTED 8.7 mg/dL 8.5-10.1 Magnesium - 09/30/18 10:05 Magnesium 2.5 mg/dL 1.8-2.4 Serum or plasma troponin i.cardiac measurement (mass/volume) - 09/30/18 10:05 Serum or plasma troponin i.cardiac measurement (mass/volume) < ng/ mL <0.30 Serum or plasma thyrotropin measurement by detection limit <=0.05 miu/l (units/ volume) - 09/30/18 10:05 Serum or plasma thyrotropin measurement by detection limit <=0.05 miu/l (units/ volume) 1.29 u[iU]/mL 0.35-4.94 Automated blood complete blood count (hemogram) panel - 10/01/18 03:30 Blood leukocytes automated count (number/volume) 7.8 10*3/uL 4.3-11.0 Blood erythrocytes automated count (number/volume) 4.98 10*6/uL 4.35-5.85 Venous blood hemoglobin measurement (mass/volume) 15.1 g/dL 13.3-17.7 Blood hematocrit (volume fraction) 46 % 40-54 Automated erythrocyte mean corpuscular volume 92 [foz_us] 80-99 Automated erythrocyte mean corpuscular hemoglobin (mass per erythrocyte) 30 pg 25-34 Automated erythrocyte mean corpuscular hemoglobin concentration measurement ( mass/volume) 33 g/dL 32-36 Automated erythrocyte distribution width ratio 14.6 % 10.0-14.5 Automated blood platelet count (count/volume) 176 10*3/uL 130-400 Automated blood platelet mean volume measurement 11.5 [foz_us] 7.4-10.4 Comprehensive metabolic panel - 10/01/18 03:30 Serum or plasma sodium measurement (moles/volume) 139 mmol/L 135-145 Serum or plasma potassium measurement (moles/volume) 4.1 mmol/L 3.6-5.0 Serum or plasma chloride measurement (moles/volume) 113 mmol/L 98-107 Carbon dioxide 17 mmol/L 21-32 Serum or plasma anion gap determination (moles/volume) 9 mmol/L 5-14 Serum or plasma urea nitrogen measurement (mass/volume) 13 mg/dL 7-18 Serum or plasma creatinine measurement (mass/volume) 0.99 mg/dL 0.60-1.30 Serum or plasma urea nitrogen/creatinine mass ratio 13 NRG Serum or plasma creatinine measurement with calculation of estimated glomerular filtration rate > NRG Serum or plasma glucose measurement (mass/volume) 107 mg/dL 70-105 Serum or plasma calcium measurement (mass/volume) 8.8 mg/dL 8.5-10.1 Serum or plasma total bilirubin measurement (mass/volume) 0.4 mg/dL 0.1-1.0 Serum or plasma alkaline phosphatase measurement (enzymatic activity/volume) 66 U/L 40-136 Serum or plasma aspartate aminotransferase measurement (enzymatic activity/ volume) 18 U/L 5-34 Serum or plasma alanine aminotransferase measurement (enzymatic activity/volume ) 24 U/L 0-55 Serum or plasma protein measurement (mass/volume) 6.1 g/dL 6.4-8.2 Serum or plasma albumin measurement (mass/volume) 3.7 g/dL 3.2-4.5 CALCIUM CORRECTED 9.0 mg/dL 8.5-10.1 Magnesium - 10/01/18 03:30 Magnesium 2.3 mg/dL 1.8-2.4 Lipid 1996 panel - 10/01/18 03:30 Serum or plasma triglyceride measurement (mass/volume) 98 mg/dL <150 Serum or plasma cholesterol measurement (mass/volume) 119 mg/dL < 200 Serum or plasma cholesterol in HDL measurement (mass/volume) 37 mg/ dL 40-60 Cholesterol in LDL [mass/volume] in serum or plasma by direct assay 71 mg/dL 1-129 Serum or plasma cholesterol in VLDL measurement (mass/volume) 20 mg/ dL 5-40 Serum or plasma lithium measurement (moles/volume) - 10/01/18 03:30 BNP level 70.2 pg/mL <100.0 Automated blood complete blood count (hemogram) panel - 11/18/18 08:59 Blood leukocytes automated count (number/volume) 8.9 10*3/uL 4.3-11.0 Blood erythrocytes automated count (number/volume) 5.20 10*6/uL 4.35-5.85 Venous blood hemoglobin measurement (mass/volume) 15.8 g/dL 13.3-17.7 Blood hematocrit (volume fraction) 47 % 40-54 Automated erythrocyte mean corpuscular volume 90 [foz_us] 80-99 Automated erythrocyte mean corpuscular hemoglobin (mass per erythrocyte) 30 pg 25-34 Automated erythrocyte mean corpuscular hemoglobin concentration measurement ( mass/volume) 34 g/dL 32-36 Automated erythrocyte distribution width ratio 13.8 % 10.0-14.5 Automated blood platelet count (count/volume) 218 10*3/uL 130-400 Automated blood platelet mean volume measurement 11.3 [foz_us] 7.4-10.4 PT panel in platelet poor plasma by coagulation assay - 11/18/18 08:59 Prothrombin time (PT) in platelet poor plasma by coagulation assay 15.8 s 12.2-14.7 INR in platelet poor plasma or blood by coagulation assay 1.3 0.8-1.4 Activated partial thromboplastin time (aPTT) in platelet poor plasma bycoagulation assay - 11/18/18 08:59 Activated partial thromboplastin time (aPTT) in platelet poor plasma bycoagulation assay 52 s 24-35 Comprehensive metabolic panel - 11/18/18 08:59 Serum or plasma sodium measurement (moles/volume) 140 mmol/L 135-145 Serum or plasma potassium measurement (moles/volume) 4.3 mmol/L 3.6-5.0 Carbon dioxide 20 mmol/L 21-32 Serum or plasma anion gap determination (moles/volume) 9 mmol/L 5-14 Serum or plasma urea nitrogen measurement (mass/volume) 16 mg/dL 7-18 Serum or plasma creatinine measurement (mass/volume) 1.04 mg/dL 0.60-1.30 Serum or plasma urea nitrogen/creatinine mass ratio 15 NRG Serum or plasma creatinine measurement with calculation of estimated glomerular filtration rate > NRG Serum or plasma glucose measurement (mass/volume) 101 mg/dL 70-105 Serum or plasma calcium measurement (mass/volume) 9.6 mg/dL 8.5-10.1 Serum or plasma total bilirubin measurement (mass/volume) 0.4 mg/dL 0.1-1.0 Serum or plasma alkaline phosphatase measurement (enzymatic activity/volume) 81 U/L 40-136 Serum or plasma aspartate aminotransferase measurement (enzymatic activity/ volume) 23 U/L 5-34 Serum or plasma alanine aminotransferase measurement (enzymatic activity/volume ) 27 U/L 0-55 Serum or plasma protein measurement (mass/volume) 7.1 g/dL 6.4-8.2 Serum or plasma albumin measurement (mass/volume) 4.3 g/dL 3.2-4.5 CALCIUM CORRECTED 9.4 mg/dL 8.5-10.1 Encounters ACCT No. Visit Date/Time Discharge Status Pt. Type Provider Facility Loc./Unit Complaint [id number] 09/02/2012 08:52:00 09/02/2012 23:59:59 CLS Outpatient [id number] 11/11/2018 07:57:00 11/11/2018 23:59:59 CLS Outpatient BRYSON STATON MD [facility] CARD AF,DIZZINESS,CHF [id number] 10/22/2018 10:17:00 10/22/2018 23:59:59 CLS Preadmit ALMA DELIA SCHULZ [facility] SLEEP I48.91 AFIB [id number] 09/30/2018 13:45:00 10/01/2018 17:20:00 DIS Inpatient BETO MORAN DO [facility] ICU A-FIB W/RVR [id number] 11/18/2018 08:10:00 ACT Outpatient BRYSON STATON MD [facility] CATH PAF,CHF
--- NOTE | 2018-11-18 13:15 | NUR ---
DR. STATON ET ANESTHESIA PRESENT IN PT ROOM FOR CARDIOVERSION AT THIS TIME. ANESTHESIA GAVE 2 VERSED, 50 PROPOFOL. CHARGED TO 200, PATIENT SHOCKED PER INSTRUCTIONS FROM DR STATON AT 1306, RHYTHM CHANGED TO NSR AT THIS TIME. EKG PREFORMED AT 1309. PLACED ON CHART.
--- NOTE | 2018-11-18 13:25 | Cardiac Procedure Note-CS/ASA ---
Pre-Procedure Note Pre-Op Procedure Note H&P Reviewed The H&P was reviewed, patient examined and no changes noted. Date H&P Reviewed: Nov 18, 2018 Time H&P Reviewed: 13:00 Conscious Sedation Pre-Proced Time 13:00 ASA Score 3 For ASA 3 and 4: Consider anesthesia and medical clearance. Also, for patients with a history of failed moderate sedation consider anesthesia. Airway Lungs Heart ASA score ASA 1: a normal healthy patient ASA 2: a patient with a mild systemic disease (mid diabetes, controlled hypertension, obesity x ASA 3: a patient with a severe systemic disease that limits activity (angina , COPD, prior Myocardial infarction) ASA 4: a patient with an incapacitating disease that is a constant threat to life (CHF, renal failure) ASA 5: a moribund patient not expected to survive 24 hrs. (ruptured aneurysm) ASA 6: a declared brain- patient whose organs are being harvested. For emergent operations, add the letter E after the classification Mallampati Classification Grade 3 Sedation Plan Analgesia, Amnesia, Plan communicated to team members, Discussed options with patient/fam, Discussed risks with patient/fam The patient is an appropriate candidate to undergo the planned procedure, sedation, and anesthesia. The patient immediately re-assessed prior to indication. BRYSON STATON MD Nov 18, 2018 13:25
--- NOTE | 2018-11-18 13:27 | Cardioversion ---
Cardioversion PROCEDURE PHYSICIAN: Bryson Earl DATE OF PROCEDURE: 11/18/18 DIRECT EXTERNAL ELECTRICAL CARDIOVERSION: Indications: Atrial Fibrillation with rapid ventricular rate Preoperative diagnoses: Atrial Fibrillation with rapid ventricular rate Postoperative diagnosis: Sinus rhythm, Successful Electrical Cardioversion History: 48 years old gentleman with paroxysmal atrial flutter ablation, had a JOSEPH done in September showed questionable left atrial thrombus. He was maintained on oral anticoagulation and scheduled for repeat JOSEPH and cardioversion Anesthesia: By Anesthesia services Complications: None Specimen: None Contrast: 0 Flouroscopy: none Procedure Details: The patient was brought the production laborer after informed consent was taken, all the risks and complications were explained including the risk of stroke. Electrical cardioversion was carried out with anesthesia support with propofol. 200 joules of synchronized shock was delivered through external patches which promptly restored sinus rhythm. The patient tolerated the procedure well. after a few minutes patient return to atrial fibrillation, he was loaded with 150 mg of amiodarone and started on amiodarone drip given one dose of Lovenox 100 mg and monitor, I repeated the electrical cardioversion 3 hours later with 200 J and it was successful in converting the patient and maintaining sinus rhythm. Conclusions: 2 attempts for cardioversion the first one was successful but patient failed to maintain sinus rhythm, he was loaded with amiodarone and then underwent a second cardioversion procedure which was successful in maintaining sinus rhythm Final Diagnosis: atrial fibrillation Tachycardia BRYSON EARL MD Nov 18, 2018 13:27
--- NOTE | 2018-11-18 13:31 | Anesthesia-Procedure Note ---
Procedures/Interventions Procedure Start/Stop/Diagnosis Date of Procedure: Nov 18, 2018 Start Time: 13:00 Referring Physician: Dr Earl Preprocedural Diagnosis: A-fib Brief History Anesthesia Note ([id number]) Called to ICU for a cardioversion. Pt returned to [facility] after this morning. Pt on an amiodarone gtt. Versed 2 mg IV and Propofol 50 mg IV for sedation for the cardioversion. VSS throughout and pt maintained spontaneous ventilation throughout, tolerated the procedure well. He returned to sinus rhythm. Stop Time: 13:10 Postprocedural Diagnosis: Sinus Rhythm JOSEPH/Cardioversion Anesthesia Type: MAC ASA Class: 3 Medications Versed 2 mg IV and Propofol 50 mg IV Monitors and Equipment: BP Cuff - Left, Continuous EKG, IV, Pulse Oximeter, V Lead EKG SD JOY DO Nov 18, 2018 13:31
--- NOTE | 2018-11-18 13:44 | Anesthesia-General Post-Op ---
MAC Patient Condition Mental Status/LOC: Same as Preop Cardiovascular: Satisfactory Nausea/Vomiting: Absent Respiratory: Satisfactory Pain: Controlled Complications: Absent Post Op Complications Complications None Follow Up Care/Instructions Patient Instructions None needed. Anesthesiology Discharge Order Discharge Order Patient is doing well, no complaints, stable vital signs, no apparent adverse anesthesia problems. SD JOY DO Nov 18, 2018 13:44
[2018-11-18] MEDS: AMIODARONE 200 MG (CORDARONE) TAB PO SCH (20:08)
[2018-11-18] MEDS: DABIGATRAN 150 MG (PRADAXA) CAPSULE PO SCH (20:08)
[2018-11-18] MEDS ORDERED: NON-FORMULARY MEDICATION 1 EA EA (Dabigatran Etexilate Mesylate (Pradaxa) 150 MG) PO SCH (21:00)
[2018-11-19] VITALS (36 sets, daily range): BP systolic 97–125; BP diastolic 62–86
[2018-11-19] MEDS ORDERED: AMIO200T4 PO (08:06)
--- NOTE | 2018-11-19 08:07 | Cardiology Progress Note ---
Subjective Date Seen by Provider: Nov 19, 2018 Time Seen by Provider: 08:06 Subjective/Events-last exam patient is laying down in bed, feeling better, no new complaint Review of Systems General: No Chills, No Night Sweats, No Fatigue, No Malaise, No Appetite, No Other HEENT: No Head Aches, No Visual Changes, No Eye Pain, No Ear Pain, No Dysphasia , No Sinus Congestion, No Post Nasal Drip, No Sore Throat, No Other Pulmonary: No Dyspnea, No Cough, No Pleuritic Chest Pain, No Other Cardiovascular: No: Chest Pain, Palpitations, Orthopnea, Paroxysmal Noc. Dyspnea, Edema, Lt Headedness, Other Objective-Cardiology Exam Last Set of Vital Signs Vital Signs 11/18/18 11/19/18 13:08 07:15 Pulse 67 Resp 17 B/P (MAP) 109/75 (86) Pulse Ox 99 O2 Delivery Room Air O2 Flow Rate 2.00 Capillary Refill : I&O Intake and Output 11/19/18 00:00 Intake Total 259 ml Balance 259 ml IV Total 259 ml General: Alert, Oriented X3, Cooperative HEENT: Atraumatic, PERRLA Neck: Supple, No JVD, No Thyromegaly Lungs: Clear to Auscultation, Normal Air Movement Heart: Regular Rate, Normal S1, Normal S2, No Murmurs Abdomen: Normal Bowel Sounds, Soft, No Tenderness, No Hepatosplenomegaly, No Masses Extremities: No Clubbing, No Cyanosis, No Edema, Normal Pulses, No Tenderness/ Swelling Skin: No Rashes, No Breakdown, No Significant Lesion Neuro: Normal Gait, Normal Speech, Strength at 5/5 X4 Ext, Normal Tone, Sensation Intact Psych/Mental Status: Mental Status NL, Mood NL Results Lab Laboratory Tests 11/18/18 08:59 A/P-Cardiology Admission Diagnosis chronic atrial fibrillation Palpitation Assessment/Plan Paroxysmal atrial fibrillation, underwent JOSEPH and cardioversion yesterday, initially failed to maintain sinus rhythm, improved after loading with amiodarone IV and orally and then another cardioversion was done and he was successful in maintaining sinus rhythm. Feeling well today. Planning for discharge home Palpitation, better BRYSON STATON MD Nov 19, 2018 08:07
[2018-11-19] MEDS: DABIGATRAN 150 MG (PRADAXA) CAPSULE PO SCH (08:40)
[2018-11-19] MEDS: AMIODARONE 200 MG (CORDARONE) TAB PO SCH (08:41)
[2018-11-19] MEDS ORDERED: NON-FORMULARY MEDICATION 1 EA EA (Diltiazem HCl (Diltiazem 24Hr Cd) 240 MG) PO SCH (09:00)
[2018-11-19] MEDS ORDERED: DILTIAZEM 240 MG (CARDIZEM CD) CAP PO SCH (09:00)
== END 2018-11-19 08:50 | disposition home or self-care (01) ==
LOC: CATH 08:10 → ICU 11:45 → CATH 11-19 08:50
PROVIDERS: ATTEND Internal Medicine Cardiovascular Disease
DX: I48.0 Paroxysmal atrial fibrillation (principal); R00.2 Palpitations; I50.22 Chronic systolic (congestive) heart failure; R53.83 Other fatigue; R42 Dizziness and giddiness; E66.9 Obesity, unspecified; Z68.37 Body mass index [BMI] 37.0-37.9, adult; Z79.01 Long term (current) use of anticoagulants; Z79.899 Other long term (current) drug therapy
CPT/HCPCS: 36415; 71045; 80053; 85027; 85610; 85730; 92960; 93005; 93312; 93320; 93325

== ENCOUNTER 2018-11-21 20:43 | Outpatient (CLI) | payer OTHER ==
[~2018-11-21 20:43] MED LIST changes: +AMIO200T4 PO; +DABI150C5 PO
== END 2018-11-21 21:25 | disposition home or self-care (01) ==
LOC: SLEEP 20:43
PROVIDERS: ATTEND Nurse Practitioner Family
DX: I48.91 Unspecified atrial fibrillation (principal); I10 Essential (primary) hypertension; E66.9 Obesity, unspecified

== ENCOUNTER 2019-01-12 05:40 | Outpatient (CLI) | payer OTHER ==
[~2019-01-12] VITALS: Ht 177.8 cm; Wt 117.9 kg
== END 2019-01-12 11:30 | disposition home or self-care (01) ==
LOC: PREOP 05:40
PROVIDERS: ATTEND Internal Medicine Interventional Cardiology
DX: Z01.818 Encounter for other preprocedural examination (principal)

== ENCOUNTER 2019-01-18 06:45 | Day surgery (SDC) | payer OTHER ==
[2019-01-18] VITALS (13 sets, daily range): BP systolic 103–130; BP diastolic 67–82
[~2019-01-18] VITALS: Ht 177.8 cm; Wt 117.9 kg
[2019-01-18] MEDS ORDERED: NS IV 1000 ML 1,000 ML IV SCH (06:49)
--- OUTSIDE RECORDS SUMMARY | 2019-01-18 06:49 | XMS REPORT | Continuity of Care Document ---
Demographics Preferred Language Unknown Marital Status Unknown Druze Affiliation Unknown Race Unknown Ethnic Group Unknown Author Organization Unknown Address Unknown Allergies Active Description Code Type Severity Reaction Onset Reported/Identified Relationship to Patient Clinical Status Yes No Known Drug Allergies [id number] Drug Allergy Unknown N/A 07/05/2012 Yes Penicillins [id number] Drug Allergy Unknown N/A 10/01/2018 Medications There [...] I50.9 HEART FAILURE, UNSPECIFIED 09/30/2018 MORAN DO, BTEO Ot I95.9 HYPOTENSION, UNSPECIFIED 09/30/2018 MORAN DO, [...] DO, BETO Ot I95.9 HYPOTENSION, UNSPECIFIED 10/01/2018 BETO MORAN DO Ot R42 DIZZINESS AND GIDDINESS 10/01/2018 CATRINA MORAN DOI Ot R53.83 OTHER FATIGUE 10/01/2018 CATRINA MORAN DOI Ot Z68.37 BODY MASS INDEX (BMI) 37.0-37.9, ADULT 10/01/2018 LUISA RUIZ BETO Ot Z88.0 ALLERGY STATUS TO PENICILLIN 11/12/2018 [...] STATON MD Ot R42 DIZZINESS AND GIDDINESS 11/19/2018 BRYSON STATON MD Ot E66.9 OBESITY, UNSPECIFIED 11/19/2018 BRYSON STATON MD Ot I48.0 PAROXYSMAL ATRIAL FIBRILLATION 11/19/2018 BRYSON STATON MD Ot I50.22 CHRONIC SYSTOLIC (CONGESTIVE) HEART FAIL 11/19/2018 BRYSON STATON MD Ot R00.2 PALPITATIONS 11/19/2018 BRYSON STATON MD Ot R42 DIZZINESS AND GIDDINESS 11/19/2018 BRYSON STATON MD Ot R53.83 OTHER FATIGUE 11/19/2018 BRYSON STATON MD Ot Z68.37 BODY MASS INDEX (BMI) 37.0-37.9, ADULT 11/19/2018 BRYSON STATON MD Ot Z79.01 STICKER HAND (CURRENT) USE OF ANTICOAGULANT 11/19/2018 BRYSON STATON MD Ot Z79.899 OTHER RETIREMENT (CURRENT) DRUG THERAPY 11/20/2018 BRYSON STATON MD Ot E66.9 OBESITY, UNSPECIFIED 11/20/2018 BRYSON STATON MD Ot I48.0 PAROXYSMAL ATRIAL FIBRILLATION 11/20/2018 BRYSON STATON MD Ot I50.22 CHRONIC SYSTOLIC (CONGESTIVE) HEART FAIL 11/20/2018 BRYSON STATON MD Ot R00.2 PALPITATIONS 11/20/2018 BRYSON STATON MD Ot R42 DIZZINESS AND GIDDINESS 11/20/2018 BRYSON STATON MD Ot R53.83 OTHER FATIGUE 11/20/2018 BRYSON STATON MD Ot Z68.37 BODY MASS INDEX (BMI) 37.0-37.9, ADULT 11/20/2018 BRYSON STATON MD Ot Z79.01 RETIREMENT (CURRENT) USE OF ANTICOAGULANT 11/20/2018 BRYSON STATON MD Ot Z79.899 OTHER STICKER HAND (CURRENT) DRUG THERAPY 11/21/2018 BRYSON STATON MD Ot I48.91 UNSPECIFIED ATRIAL FIBRILLATION 11/21/2018 BRYSON STATON MD, Ot I50.9 HEART FAILURE, UNSPECIFIED 11/21/2018 BRYSON STATON MD, Ot R42 DIZZINESS AND GIDDINESS 11/21/2018 ALMA DELIA SCHULZ Ot E66.9 OBESITY, UNSPECIFIED 11/21/2018 ALMA DELIA SCHULZP Ot I10 ESSENTIAL (PRIMARY) HYPERTENSION 11/21/2018 ALMA DELIA SCHULZP Ot I48.91 UNSPECIFIED ATRIAL FIBRILLATION 12/07/2018 ALMA DELIA SCHULZP Ot E66.9 OBESITY, UNSPECIFIED 12/07/2018 ALMA DELIA SCHULZP Ot I10 ESSENTIAL (PRIMARY) HYPERTENSION 12/07/2018 ALMA DELIA SCHULZP Ot I48.91 UNSPECIFIED ATRIAL FIBRILLATION 01/12/2019 Funmi LOMAS MD Ot Z01.818 ENCOUNTER FOR OTHER PREPROCEDURAL EXAMIN 01/13/2019 Funmi LOMAS MD Ot Z01.818 ENCOUNTER FOR OTHER PREPROCEDURAL EXAMIN Procedures Code [place] [address] ROUTINE VENIPUNCTURE 09/02/2012 98971 A1C (IN-HOUSE) 09/02/2012 85020 CBC 09/02/2012 05382 LIPID PANEL 09/02/2012 78133 CMP 09/02/2012 7196694 GFR CALC (RESULT ONLY) 09/02/2012 57500 HEPATITIS PROFILE 09/03/2012 22056 UA W/MICROSCOPY 09/03/2012 59012 ALPHA-FETOPROTEIN 09/03/2012 60182 US ABDOMEN, LIMITED 09/03/2012 Results Test Result [...] plasma potassium measurement (moles/volume) 4.3 mmol/L 3.6-5.0 Serum or plasma chloride measurement (moles/volume) 111 mmol/L 98-107 Carbon dioxide 20 mmol/L 21-32 Serum or [...] Status Pt. Type Provider Facility Loc./Unit Complaint [id number] 09/02/2012 08:52:00 09/02/2012 23:59:59 CLS Outpatient [id number] 01/12/2019 05:40:00 01/12/2019 11:30:00 DIS Outpatient Funmi LOMAS MD [facility] PREOP PERSISTENT ATRIAL FIBRILLATION [id number] 11/21/2018 20:43:00 11/21/2018 21:25:00 DIS Outpatient ALMA DELIA SCHULZ [facility] SLEEP I48.91 AFIB [id number] 11/18/2018 08:10:00 11/19/2018 08:50:00 DIS Outpatient BRYSON STATON MD [facility] CATH PAF,CHF [id number] 11/11/2018 07:57:00 11/11/2018 23:59:59 CLS Outpatient BYRSON STATON MD [facility] CARD AF,DIZZINESS,CHF [id number] 09/30/2018 13:45:00 10/01/2018 17:20:00 DIS Inpatient BETO MORAN DO [facility] ICU A-FIB W/RVR [id number] 01/18/2019 06:45:00 ACT Outpatient Funmi LOMAS MD [facility] CATH PERSISTENT AFIB
--- OUTSIDE RECORDS SUMMARY | 2019-01-18 06:49 | XMS REPORT ---
Author Author Migration, Doctor Organization [facility] Address Unknown Phone Unavailable Care Team Providers Care Bonding Machine Operator Name Role Phone Migration, Doctor Unavailable Unavailable PROBLEMS Type Condition ICD9-CM Code [id number] Code Onset Dates Condition Status SNOMED Code Problem Other specified disorders of liver 573.8 Active 372336260 Problem Obesity, unspecified 278.00 Active 654821079 Problem Elevated blood pressure reading without diagnosis of hypertension 796.2 Active 396422849 Problem Calculus of kidney 592.0 Active 32539182 ALLERGIES No Information ENCOUNTERS Encounter Location Date Diagnosis [id number], [place] [address] Aug, [facility] [id number], [place] [address] Aug, [id number], [place] [address] Aug, IMMUNIZATIONS No Known Immunizations SOCIAL HISTORY Never Assessed REASON [place] V[place]IT [place] [place] VITAL SIGNS MEDICATIONS Unknown Medications RESULTS No Results PROCEDURES No Known procedures INSTRUCTIONS MEDICATIONS ADMINISTERED No Known Medications
[2019-01-18] MEDS ORDERED: NS IV 1000 ML 4,000 ML ONE (06:52)
[2019-01-18] MEDS ORDERED: LIDOCAINE 1% INJ 20 ML 20 ML VIAL ONE (06:52)
[2019-01-18] MEDS ORDERED: HEParin 1000 UNIT/ML (10ML VIAL) FOR BOLUS ONE ×2 (06:52→10:12)
[2019-01-18] MEDS ORDERED: ISOPROTERENOL 0.2 MG/100 ML D5W IV ONE (07:00)
[2019-01-18] MEDS ORDERED: ROCURONIUM 10 MG/ML 5 ML SYRINGE IV ONE ×2 (07:07→08:41)
[2019-01-18] MEDS ORDERED: DEXAMETHASONE 10 MG/ML (DECADRON) 1 ML VIAL ONE (07:07)
[2019-01-18] MEDS ORDERED: proPOfol 200 MG/20 ML (DIPRIVAN) VIAL IV ONE (07:07)
[2019-01-18] MEDS ORDERED: fentaNYL INJECTION 100 MCG/2 ML AMP ONE ×3 (07:07→14:29)
[2019-01-18] MEDS ORDERED: ONDANSETRON 4 MG/2 ML (SDV) Z0FRAN ONE ×2 (07:07→14:57)
[2019-01-18] MEDS ORDERED: MIDAZOLAM 2 MG/2 ML (VERSED) VIAL ONE (07:07)
[2019-01-18] MEDS ORDERED: SEVOFLURANE (ULTANE) 15 ML INHAL SOLN ONE ×4 (07:08→16:00)
[2019-01-18] MEDS ORDERED: LIDOCAINE PF 1% 2 ML AMP ONE (07:08)
[2019-01-18] MEDS ORDERED: SUCCINYLCHOLINE INJ 100 MG/5 ML SYR ONE (07:10)
[2019-01-18 07:13] LABS: HEMOGLOBIN 14.6 G/DL (13.3-17.7); MEAN PLATELET VOLUME 11.2 FL (7.4-10.4); RED CELL DISTRIBUTION WIDTH 13.9 % (10.0-14.5); WHITE BLOOD COUNT 8.5 10^3/uL (4.3-11.0)
[2019-01-18] MEDS ORDERED: NS IV 1000 ML 1,000 ML ONE ×4 (07:21→13:05)
[2019-01-18 07:25] LABS: INR 1.2 (0.8-1.4); PROTHROMBIN TIME PATIENT 15.2 SEC (12.2-14.7)
[2019-01-18] MEDS ORDERED: AMIO200T4 PO (07:26)
[2019-01-18] MEDS ORDERED: DABI150C5 PO (07:26)
[2019-01-18] MEDS ORDERED: DILT240C90 PO (07:26)
[2019-01-18] MEDS ORDERED: ENAL5TAB PO (07:26)
[2019-01-18] MEDS ORDERED: HEParin DRIP 25000 UNIT/500ML 500 ML IV ONE (07:26)
[2019-01-18 07:33] LABS: ALANINE AMINOTRANSFERASE 31 U/L (0-55); ALBUMIN 4.1 GM/DL (3.2-4.5); ALKALINE PHOSPHATASE 55 U/L (40-136); BILIRUBIN,TOTAL 0.3 MG/DL (0.1-1.0); BUN/CREATININE RATIO 13; CALCIUM 8.8 MG/DL (8.5-10.1); CARBON DIOXIDE 23 MMOL/L (21-32); CHLORIDE 110 MMOL/L (98-107); CREATININE SERUM 0.93 MG/DL (0.60-1.30); GFR ESTIMATED > 60; GLUCOSE 102 MG/DL (70-105); POTASSIUM 4.1 MMOL/L (3.6-5.0); SODIUM 141 MMOL/L (135-145); TOTAL PROTEIN 6.4 GM/DL (6.4-8.2)
--- NOTE | 2019-01-18 14:25 | Cardiac Procedure Note-CS/ASA ---
Pre-Procedure Note Pre-Op Procedure Note H&P Reviewed The H&P was reviewed, patient examined and no changes noted. Date H&P Reviewed: Jan 18, 2019 Time H&P Reviewed: 08:00 Conscious Sedation Pre-Proced Time 08:00 ASA Score 3 For ASA 3 and 4: Consider anesthesia and medical clearance. Also, for patients with a history of failed moderate sedation consider anesthesia. Airway Lungs Heart ASA score ASA 1: a normal healthy patient ASA 2: a patient with a mild systemic disease (mid diabetes, controlled hypertension, obesity ASA 3: a patient with a severe systemic disease that limits activity (angina , COPD, prior Myocardial infarction) ASA 4: a patient with an incapacitating disease that is a constant threat to life (CHF, renal failure) ASA 5: a moribund patient not expected to survive 24 hrs. (ruptured aneurysm) ASA 6: a declared brain- patient whose organs are being harvested. For emergent operations, add the letter E after the classification Mallampati Classification Grade 1 Sedation Plan Analgesia, Amnesia, Plan communicated to team members, Discussed options with patient/fam, Discussed risks with patient/fam The patient is an appropriate candidate to undergo the planned procedure, sedation, and anesthesia. The patient immediately re-assessed prior to indication. Funmi LOMAS MD Jan 18, 2019 14:25
--- NOTE | 2019-01-18 14:26 | Electrophysiology Procedure ---
EP Procedure DATE OF SERVICE:01/18/19 Persistent Atrial Fibrillation Ablation Report REFERRING PHYSICIAN: Dr. Earl CARDIAC ABSENCE MANAGEMENT CONSULTANT: Dr. Salvador Avila INDICATION: Persistent AF refractory to Antiarrhythmic therapy. PREOPERATIVE DIAGNOSIS: Persistent AF refractory to Antiarrhythmic therapy. POSTOPERATIVE DIAGNOSES: Successful Pulmonary Vein Isolation. HISTORY: This is a 48 year old gentleman with symptomatic persistent AF refractory to Antiarrhythmic therapy. The patient is planned for comprehensive EP study and AF ablation. PROCEDURE PERFORMED: 1. EP study. 2. Fluoroscopy. 3. CS pacing. 4. Drug infusion. 5. Pulmonary vein isolation (AF ablation) 6. Comprehensive 3D mapping with the carto system. COMPLICATION: None. ESTIMATED BLOOD LOSS: 10 mL. CONTRAST USED: None. FLUOROSCOPY TIME: 15.7 minutes FLUOROSCOPY DOSE: 361 mgy SPECIMENS: None. ANESTHESIA: Done by our anesthesia colleagues. ANTICOAGULATION: Pradaxa uninterrupted, Heparin PROCEDURE IN DETAIL: After informed consent was taken, the patient was brought to the EP lab. Anesthesia was provided by our anesthesia colleagues. The patient was draped and prepped in the usual sterile fashion. The patient presented to the EP lab in sinus rhythm. Access was gained in the right femoral vein with a 8 Vincentian sheath and an 8.5 Vincentian sheath. Access was gained in the right femoral artery with a 5 Vincentian sheath. Access was gained in the left femoral vein with two 6 Vincentian sheaths. An ice catheter was advanced through the 8-1/2 Vincentian sheath and placed in the right atrium. We then took a 0.032 guidewire and placed it in the SVC. The short sheath was then taken out and then a long sheath with introducer was advanced into the SVC. The guidewire was taken out and under ice and fluoroscopic guidance the long sheath and introducer were pulled back to the tip was in the fossa ovalis. The transseptal needle was advanced and then very carefully under ice and fluoroscopic guidance a single transseptal puncture was performed. IV heparin was given to a target ACT of over 300 seconds. A CS catheter was advanced through the 6 Vincentian left femoral vein access and placed in the CS. A His Catheter was placed too. The ice catheter was used to create a car to sound image of the left atrium as well as left atrial appendage, mitral valve, all 4 pulmonary veins, esophagus. We then advanced a pentaray catheter into the left atrium and high density mapping was performed and a 3-D map was created of the left atrium. We then exchanged the mapping catheter with a irrigated ablation catheter. WACA/PVI ablation was performed for all 4 pulmonary veins. All the 4 veins were isolated. A 3D electroanatomic mapping was donewith the carto system. Isuprel was given to the dose of 20 g per KG per minute with no induction of atrial fibrillation. A EP study was done using the CS catheter. The patienttolerated the procedure well and did not have any complication.Protamine was given to reverse anticoagulation. Figure of 8 were done for venous closure. The patientleft the lab in sinus rhythm. Total ablation time was one hour, 24 minutes, 23 seconds. MEASUREMENTS/EP STUDY: AH Interval 69 ms, HV Interval 63 ms AV [id number] Atrial node [id number] PLAN: The patient will be observed overnight and will be discharged home tomorrow with precise followup instructions. Salvador Avila MD, [facility], CCDS Cardiac Electrophysiology Funmi AVILA MD Jan 18, 2019 14:26
[2019-01-18] MEDS ORDERED: PROTAMINE 50 MG/5 ML VIAL ONE (14:48)
--- NOTE | 2019-01-18 15:11 | History & Physicial-Cardiolgy ---
HPI-Cardiology Cardiology Consultation: Date of Consultation 01/18/19 Date of Admission Attending Physician Funmi Avila MD Admitting Physician Steff,Local Physician Consulting Physician Funmi AVILA MD HPI: Time Seen by a Provider: 08:00 Chief Complaint: symptomatic persistent AF 48 year old male with persistent AF refractory to anti arrhythmic therapy. Review of Systems-Cardiology Review of Systems Constitutional: As described under HPI; No As described under HPI, No no symptoms reported, No chills, No fever, No lightheadedness Eyes: No As described under HPI, No no symptoms reported, No blindness, No blurred vision, No contact lenses, No drainage, No decreased acuity, No foreign body sensation, No pain, No vision change Ears/Nose/Throat: No As described under HPI, No no symptoms reported, No chronic hearing loss, No ear discharge, No ear pain, No nasal drainage, No ulcerations Respiratory: No no symptoms reported; As described under HPI; No As described under HPI, No cough, No orthopnea, No shortness of breath, No SOB with excertion Cardiovascular: No no symptoms reported; As described under HPI; No As described under HPI, No chest pain, No edema, No irregular heart rate, No lightheadedness, No palpitations Gastrointestinal: No no symptoms reported, No As described under HPI, No abdomen distended, No abdominal pain, No blood streaked bowels, No constipation , No diarrhea, No nausea, No vomiting, No stool coloration changes Genitourinary: No As described under HPI, No burning, No dysuria, No discharge , No frequency, No flank pain, No hematuria, No urgency Skin: No rash, No skin related problems, No ulcerations Psychiatric/Neurological: No anxiety, No depression, No seizure, No focal weakness, No syncope Hematologic: No bleeding abnormalities QMN-Okcbyk-Qursix Hx Patient Social History Alcohol Use: Occasionally Uses Recreational Drug Use: No Smoking Status: Never a Smoker 2nd Hand Smoke Exposure: Yes Recent Foreign Travel: No Recent Infectious Disease Expo: No Past Medical History PMH As described under Assessment. Allergies and Home Medications Allergies Coded Allergies: Penicillins (Verified Allergy, Unknown, 10/01/18) Home Medications Amiodarone HCl 200 Mg Tablet, 200 MG PO DAILY, (Reported) Dabigatran Etexilate Mesylate 150 Mg Capsule, 150 MG PO BID, (Reported) Diltiazem HCl 240 Mg Cap.er.24h, 240 MG PO DAILY, (Reported) Enalapril Maleate 5 Mg Tablet, 5 MG PO DAILY, (Reported) Patient Home Medication List Home Medication List Reviewed: Yes Physical Exam-Cardiology Physical Exam Vital Signs/I&O 01/18/19 07:01 Temp 98.8 Pulse 68 Resp 16 B/P (MAP) 130/82 (98) Pulse Ox 98 O2 Delivery Room Air Capillary Refill : Constitutional: appears stated age, AAO x 3; No apparent distress; well- developed, well-nourished HEENT: PERRL; No normal ENT inspection, No TMs normal, No pharynx normal, No scleral icterus (R), No scleral icterus (L), No pale conjunctivae (R), No pale conjunctivae (L), No photophobia, No TM abnormal (R), No TM abnormal (L), No pharyngeal erythema, No tonsillar exudate, No other, No discharge, No EOMI; hearing is well preserved; No hard of hearing; oral hygience is good; No ulceration, No xanthelasmas are seen Neck: No carotid bruit; carotid pulses are 2 + bilaterally Respiratory: No accessory muscle use, No respiratory distress, No chest tender , No chest expansion is symmetric; chest is bilaterally symmetric; No lungs clear to percussion; lungs clear to auscultation; No crackles, No rhonchi, No rales, No stridor, No wheezing, No pleural rub, No other Cardiovascular: regular rate-rhythm, S1 and S2 Gastrointestinal: No tender, No soft, No round, No distended, No pulsatile mass , No organomegaly, No guarding, No rebound, No tenderness, No hernia, No mass, No audible bowel sounds, No abnormal bowel sounds, No abdominal bruits, No spleenomegaly, No other Rectal: deferred Genital/Rectal: No normal genital exam, No normal rectal exam, No heme negative stool, No normal rectal tone, No normal vaginal exam, No blood at urethral meatus, No decreased rectal tone, No heme positive stool, No tenderness , No other Extremities: No normal range of motion, No non-tender, No normal inspection, No pedal edema, No calf tenderness, No normal capillary refill, No pelvis stable , No calf tenderness, No inflammation, No pedal edema, No slow capillary refill , No swelling, No other, No abrasion, No clubbing, No cyanosis, No ecchymosis, No laceration, No no lower extremity edema bilateral, No significant edema, No tenderness, No wound Neurologic/Psychiatric: no motor/sensory deficits, alert, normal mood/affect, oriented x 3, power is 5/5 both on sides Skin: No normal color, No warm/dry, No cyanosis, No cool, No diaphoresis, No damp, No ecchymosis, No jaundice, No mottled, No pallor, No rash, No tattoos/ piercings, No ulcerations, No rash on exposed areas, No ulcerations on exposed areas, No other Data Review Labs Laboratory Tests 01/18/19 07:03: White Blood Count 8.5, Red Blood Count 4.62, Hemoglobin 14.6, Hematocrit 43, Mean Corpuscular Volume 93, Mean Corpuscular Hemoglobin 32, Mean Corpuscular Hemoglobin Concent 34, Red Cell Distribution Width 13.9, Platelet Count 183, Mean Platelet Volume 11.2H, Prothrombin Time 15.2H, INR Comment 1.2, Activated Partial Thromboplast Time 54H, Sodium Level 141, Potassium Level 4.1, Chloride Level 110H, Carbon Dioxide Level 23, Anion Gap 8, Blood Urea Nitrogen 12, Creatinine 0.93, Estimat Glomerular Filtration Rate > 60, BUN/Creatinine Ratio 13, Glucose Level 102, Calcium Level 8.8, Corrected Calcium 8.7, Total Bilirubin 0.3, Aspartate Amino Transf (AST/SGOT) 22, Alanine Aminotransferase ( ALT/SGPT) 31, Alkaline Phosphatase 55, Total Protein 6.4, Albumin 4.1 ECG Impression ECG Initial ECG Rhythm: Normal Sinus A/P-Cardiology Assessment/Admission Diagnosis Persistent AF Admission Status: Observation Plan AF ablation Funmi AVILA MD Jan 18, 2019 15:11
[2019-01-18] MEDS ORDERED: PATIENT MAY USE OWN MEDS, ALL PO SCH (15:15)
[2019-01-18] MEDS ORDERED: ONDANSETRON 4 MG/2 ML (SDV) Z0FRAN IVP PRN (16:00)
[2019-01-18] MEDS ORDERED: morphine INJ 10 MG/ML 1ML (SYR OR VIAL) IVP ONE (16:00)
[2019-01-18] MEDS ORDERED: fentaNYL INJECTION 100 MCG/2 ML AMP IVP PRN (17:00)
[2019-01-18] MEDS: NS IV 1000 ML 1,000 ML IV SCH (17:13)
--- NOTE | 2019-01-18 18:30 | NUR ---
communication sent to Dr. Avila regarding restarting patients home medications, as they have not been reordered. Awaiting response.
--- NOTE | 2019-01-18 19:40 | NUR ---
RECEIVED CALL BACK FROM DR. LOMAS AT THIS TIME. IF NO BLEEDING AT SITES UPON REMOVAL OF FIGURE 8 SUTURE, OK TO RESTART HOME MEDS INCLUDING PRADAXA. IF OOZING PRESENT, HOLD PRADAXA UNTIL AM.
--- NOTE | 2019-01-18 19:55 | NUR ---
FIGURE 8 SUTURES REMOVED AT THIS TIME WITH ASSISTANCE OF SHAGGY ARMSTRONG. NO BLEEDING, SITE IS SOFT, NO HEMATOMA NOTED, NO DISCOLORATION. PATIENT C/O NO PAIN OR DISCOMFORT OF SITE. PRESSURE DRESSSING ET OPSITES PLACED OVER BOTH SITES AT THIS TIME.
[2019-01-18] MEDS ORDERED: NON-FORMULARY MEDICATION 1 EA EA (Dabigatran Etexilate Mesylate (Pradaxa) 150 MG) PO SCH (21:00)
[2019-01-18] MEDS: DABIGATRAN 150 MG (PRADAXA) CAPSULE PO SCH (21:07)
[2019-01-19] VITALS (10 sets, daily range): BP systolic 109–139; BP diastolic 58–88
[2019-01-19] MEDS: NS IV 1000 ML 1,000 ML IV SCH ×2 (01:05→11:18)
[2019-01-19 03:56] LABS: HEMOGLOBIN 12.7 G/DL (13.3-17.7); MEAN PLATELET VOLUME 11.6 FL (7.4-10.4); RED CELL DISTRIBUTION WIDTH 13.6 % (10.0-14.5); WHITE BLOOD COUNT 19.8 10^3/uL (4.3-11.0)
[2019-01-19 04:11] LABS: BUN/CREATININE RATIO 12; CALCIUM 8.7 MG/DL (8.5-10.1); CARBON DIOXIDE 21 MMOL/L (21-32); CHLORIDE 110 MMOL/L (98-107); CREATININE SERUM 0.78 MG/DL (0.60-1.30); GFR ESTIMATED > 60; GLUCOSE 126 MG/DL (70-105); POTASSIUM 4.3 MMOL/L (3.6-5.0); SODIUM 140 MMOL/L (135-145)
[2019-01-19] MEDS ORDERED: AMIODARONE 200 MG (CORDARONE) TAB PO SCH (09:00)
[2019-01-19] MEDS ORDERED: DILTIAZEM 240 MG (CARDIZEM CD) CAP PO SCH (09:00)
[2019-01-19] MEDS ORDERED: NON-FORMULARY MEDICATION 1 EA EA (Diltiazem HCl (Diltiazem 24Hr Cd) 240 MG) PO SCH (09:00)
[2019-01-19] MEDS ORDERED: ENALAPRIL 5 MG (VASOTEC) TAB PO SCH (09:00)
[2019-01-19] MEDS: DABIGATRAN 150 MG (PRADAXA) CAPSULE PO SCH (09:16)
[2019-01-19] MEDS ORDERED: ENAL5TAB PO (10:47)
--- NOTE | 2019-01-19 12:15 | Cardiology Discharge Summary ---
Diagnosis/Chief Complaint Date of Admission 01/18/2019 Date of Discharge 01/19/2019 Admission Diagnosis Symptomatic persistent AF Final/Discharge Diagnosis Successful PVI Chief Complaint/HPI Chief Complaint/HPI 48 year old male with persistent AF refractory to anti arrhythmic therapy. Discharge Summary Procedures Pulmonary vein isolation - successful. Discharge Physical Examination Unremarkable. Hospital Course Was the Problem List Reviewed?: Yes Unremarkable. Discussion & Recommendations Discussion Discharge instructions discussed at length. Procedure details were discussed at length with post procedure. Patient will continue pradaxa. Follow up in two to three weeks. Follow up appt.: Dr Avila in two to three weeks. Dicharge Diet: Regular Diet Activity as Tolerated: Yes Home Medications Reviewed patient Home Medication Reconciliation performed by pharmacy medication reconciliations atm technician and/or nursing. Patients Allergies have been reviewed. Discharge Home Medications: Reviewed and agree with Discharge Medication list on patient's Discharge Instruction sheet Condition at discharge stable Instructions to patient/family Discussed Funmi AVILA MD Jan 19, 2019 12:15
--- NOTE | 2019-01-19 12:15 | Discharge Inst-Post CATH ---
Discharge Inst-CATH/EP Post Cardiac Cath/EP D/C Inst Follow Up/Plan Dr Avila in two to three weeks. <b>CARDIAC CATH/EP PROCEDURE DISCHARGE INSTRUCTIONS</b> Cardiac Rehab Please be expecting a follow up call from Cardiac Rehab within in one week. ACTIVITY * Go Home directly and rest. * Limit activity of the leg (or wrist if it was used) for 7 days including aerobics, swimming, jogging, bicycling, etc. * Restrict stair-climbing for 7 days if possible, if not, climb up with your non -cath leg, then bring together on the same step. * Avoid lifting, pushing, pulling or excessive movement of the affected extremity for 7 days. * Customary sexual activity may be resumed after 2 days-use caution not to use a position that strains or causes pain to the affected extremity. * No driving for 24 hours. * NO SMOKING. * Avoid straining for bowel movements for 7 days. * Gentle walking on level ground is allowed. * Returning to work will depend on the type of procedure and the results. Your doctor will discuss this with you. CALL YOUR DOCTOR FOR ANY OF THE FOLLOWING: *If bleeding from the puncture site occurs- Apply gentle pressure to site with clean cloth and call your doctor or EMS. * If a knot or lump forms under the skin, increases in size, or causes pain. * If bruising appears to be worsening or moving further down your leg instead of disappearing. * Temperature above 101 F. CARE OF YOUR GROIN INCISION; * Bruising or purple discoloration of the skin near the puncture site is common. * You may shower only, no bathtub bathing for 5 days. Be careful to avoid slipping as your leg may feel stiff. * If a closure device was used on your femoral artery, please see the attached guide regarding care of the device and your leg. * Leave dressing on FOR 24 hours. CARE OF YOUR WRIST INCISION; * Bruising or purple discoloration of the skin near the puncture site is common. * You may shower. * DO NOT submerge wrist. * Leave dressing on FOR 24 hours. Funmi AVILA MD Jan 19, 2019 12:15
--- NOTE | 2019-01-19 12:40 | Anesthesia-General Post-Op ---
General Patient Condition Mental Status/LOC: Same as Preop Cardiovascular: Satisfactory Nausea/Vomiting: Absent Respiratory: Satisfactory Pain: Controlled Complications: Absent Post Op Complications Complications None Follow Up Care/Instructions Patient Instructions None needed. Anesthesia/Patient Condition Patient Condition Patient is doing well, no complaints, stable vital signs, no apparent adverse anesthesia problems. No complications reported per nursing. CELENA DUGAN CRNA Jan 19, 2019 12:40
== END 2019-01-19 12:20 | disposition home or self-care (01) ==
LOC: CATH 06:45 → ICU 16:40 → CATH 01-19 12:20
PROVIDERS: ATTEND Internal Medicine Interventional Cardiology
DX: I48.1 Persistent atrial fibrillation (principal); I50.9 Heart failure, unspecified; E66.9 Obesity, unspecified; Z88.0 Allergy status to penicillin; Z79.899 Other long term (current) drug therapy; Z87.442 Personal history of urinary calculi; Z68.37 Body mass index [BMI] 37.0-37.9, adult
CPT/HCPCS: 36415; 80048; 80053; 85027; 85610; 85730; 87081; 93005; 93613; 93656; 93662

== ENCOUNTER 2019-05-14 11:59 | Outpatient (RCR) | payer OTHER ==
[~2019-05-14 11:59] MED LIST changes: +DILT240C90 PO
== END 2019-08-12 | disposition home or self-care (01) ==
LOC: CARD 11:59
PROVIDERS: ATTEND Internal Medicine Interventional Cardiology
DX: I48.91 Unspecified atrial fibrillation (principal)

== ENCOUNTER 2019-06-24 08:32 | Day surgery (SDC) | payer OTHER ==
[~2019-06-24] VITALS: Ht 177 cm; Wt 115.9 kg
[2019-06-24] MEDS ORDERED: LIDOCAINE 1% INJ 20 ML 20 ML VIAL ONE (08:34)
[2019-06-24] MEDS ORDERED: LIDOCAINE 1% INJ 20 ML 20 ML VIAL INJ ONE (08:45)
[2019-06-24 08:50] VITALS: BP 140/84
[2019-06-24 10:19] VITALS: BP 132/71
--- NOTE | 2019-06-24 15:38 | Implantation of Loop Monitor ---
Implant of Loop Monitior PROCEDURE PHYSICIAN: Salvador Avila MD IMPLANTATION OF LOOP MONITOR REPORT DATE OF PROCEDURE: 06/24/19 PERFORMING PHYSICIAN: Dr. Jamel Avila. INDICATION: Long-term surveillance of atrial fibrillation PREOP DIAGNOSIS: Long-term surveillance of atrial fibrillation POSTOP DIAGNOSIS: Atrial fibrillation, s/p implantation of loop recorder. PROCEDURE DETAILS: The patient is a 49 male with history of paroxysmal atrial fibrillation requ iring long-term surveillance. Therefore implantable loop recorder was discussed and agreed with the patient. Informed consent was taken. All risks and complications were discussed at length. The patient was draped and prepped in the usual sterile fashion. Local anesthesia was lidocaine, which was given in the substernal area close to the 4th intercostal space. Loop monitor was imp lanted according to the protocol. Steri-Strips were placed at the end of the procedure. There were no complications and the patient tolerated the procedure well. The device was interrogated with a voltage of 0.17 mV. ANESTHESIA: Local anesthesia with lidocaine. COMPLICATIONS: None CONTRAST/FLUOROSCOPY: None CONCLUSION: 1. Successful implantation of loop monitor for long-term surveillance of atrial fibrillation. 2. No complication and the patient tolerated the procedure well. Salvador Avila MD, RS, CCDS Cardiac Electrophysiology Funmi AVILA MD Jun 24, 2019 15:38
== END 2019-06-24 10:20 ==
LOC: CATH 08:32
PROVIDERS: ATTEND Internal Medicine Interventional Cardiology
DX: I48.0 Paroxysmal atrial fibrillation (principal); I50.9 Heart failure, unspecified; I51.89 Other ill-defined heart diseases; E66.9 Obesity, unspecified; Z82.49 Family history of ischemic heart disease and other diseases of the circulatory system; Z68.37 Body mass index [BMI] 37.0-37.9, adult; Z95.818 Presence of other cardiac implants and grafts; Z88.0 Allergy status to penicillin; Z79.899 Other long term (current) drug therapy
CPT/HCPCS: 33285

== ENCOUNTER → 2021-01-08 | Outpatient (CLI) | payer OTHER ==
[~2021-01-08] MED LIST changes: -AMIO200T4 PO; +AMIO200T6 PO; +DILT240C92 PO; -DILT240C97 PO; -ENAL5TAB PO; +ENLP5T PO
== END ==
LOC: LABNPT 07:17
PROVIDERS: ATTEND Internal Medicine
DX: Z53.9 Procedure and treatment not carried out, unspecified reason (principal)